=== PATIENT | male | born 1960 | race African-American/Black ===

== ENCOUNTER 2019-10-20 17:08 | Emergency (ER) | payer OTHER ==
[2019-10-20] MEDS ORDERED: ONDANSETRON 4 MG/2 ML VIAL ONE (19:49)
[2019-10-20] MEDS ORDERED: MORPHINE 2 MG/ML SYR ONE (19:49)
[2019-10-20] MEDS ORDERED: Levofloxacin500mg IV 500 MG/100 ML BAG IV ONE (19:50)
[2019-10-20] MEDS ORDERED: CLINDAMYCIN 900MG/D5W 900 MG/50 ML IVPB IV ONE (19:50)
[2019-10-20 20:03] LABS: Protime INR 1.84
[2019-10-20 20:13] LABS: Albumin 2.9 g/dL (3.4-5.0); Bilirubin Direct 0.3 mg/dL (0-0.2); Bilirubin Total 0.8 mg/dL (0.2-1.0); Protein, Total 8.5 g/dL (6.4-8.2); Troponin (Emerg Dept Use Only) 0.03 ng/mL (0.0-0.045)
[2019-10-20 20:14] LABS: Magnesium 2.1 mg/dL (1.8-2.4); Potassium 4.1 mmol/L (3.5-5.1)
[2019-10-20 20:17] LABS: Absolute Lymphocytes (CBC) 0.9 K/uL (0.7-4.9); Basophils % 0.5 % (0-1.3); Hematocrit 43.5 % (39.6-49.0); Lymphocytes % 6.1 % (15.3-44.8); MPV 12.5 fL (7.6-11.3); RBC Red Blood Cell Count 4.66 M/uL (4.33-5.43)
--- NOTE | 2019-10-20 20:29 | RAD REPORT ---
EXAM DESCRIPTION: Ritchie Single View10/20/2019 7:40 pm CLINICAL HISTORY: cough COMPARISON: 2017 FINDINGS: The lungs appear clear of acute infiltrate. The heart is mildly enlarged. Pacemaker leads in place IMPRESSION: No acute abnormalities displayed
--- NOTE | 2019-10-20 21:05 | RAD REPORT ---
EXAM DESCRIPTION: US - Scrotum Testicles - 10/20/2019 8:53 pm CLINICAL HISTORY: Testicular pain COMPARISON: None FINDINGS: Right testicle measures 2.7 x 2.7 x 1.1 centimeters. Echotexture is mildly inhomogeneous. Normal blood flow Left testicle measures 2 x 1.8 x 1.8 centimeters centimeters. Echotexture is homogeneous. Normal bloo d flow Neither epididymis seen A 5 x 2.2 x 3.2 centimeter hypoechoic structure is present within the left scrotum with blood flow fulton rrounding it. This probably represents an abscess. There is marked scrotal skin thickening IMPRESSION: 5 centimeter hypoechoic structure within the left scrotum probably an abscess
--- NOTE | 2019-10-20 22:22 | EDPHYS ---
Physician Documentation [facility] Name: Isael Salas Jr Age: 59 yrs Sex: Male : 1960 Arrival Date: 10/20/2019 Time: 17:29 Bed 19 Private MD: ED Physician Ford Loco HPI: 10/19 18:50 This 59 yrs old Black Male presents to ER via EMS with complaints of SCROTAL PAIN X 1 brandy WEEK. 18:50 The patient presents with scrotal pain, of both sides, with swelling, swelling, brandy tenderness. Onset: The symptoms/episode began/occurred 1 week(s) ago. Modifying factors: The symptoms are alleviated by nothing, the symptoms are aggravated by movement, pressure. Associated signs and symptoms: The patient has no apparent associated signs or symptoms. Severity of symptoms: At their worst the symptoms were moderate, in the emergency department the symptoms. The patient has not experienced similar symptoms in the past. Historical: - Allergies: 17:41 No Known Allergies; ss - PMHx: 17:41 CHF; Hypertension; LOW POTASSIUM; CVA; ss - PSHx: 17:41 DEFIBRILLATOR; ss - Immunization history:: Adult Immunizations up to date. - Social history:: Smoking status: Patient denies any tobacco usage or history of. - Family history:: not pertinent. ROS: 18:50 Constitutional: Negative for fever, chills, and weight loss, Eyes: Negative for injury, brandy pain, redness, and discharge, ENT: Negative for injury, pain, and discharge, Neck: Negative for injury, pain, and swelling, Cardiovascular: Negative for chest pain, palpitations, and edema, Respiratory: Negative for shortness of breath, cough, wheezing, and pleuritic chest pain, Abdomen/GI: Negative for abdominal pain, nausea, vomiting, diarrhea, and constipation, Back: Negative for injury and pain, MS/Extremity: Negative for injury and deformity, Skin: Negative for injury, rash, and discoloration, Neuro: Negative for headache, weakness, numbness, tingling, and seizure, Psych: Negative for depression, anxiety, suicide ideation, homicidal ideation, and hallucinations, Allergy/Immunology: Negative for hives, rash, and allergies, Endocrine: Negative for neck swelling, polydipsia, polyuria, polyphagia, and marked weight changes, Hematologic/Lymphatic: Negative for swollen nodes, abnormal bleeding, and unusual bruising. 18:50 : Positive for of the left testicle and right testicle. Exam: 18:50 Constitutional: This is a well developed, well nourished patient who is awake, alert, brandy and in no acute distress. Head/Face: Normocephalic, atraumatic. Eyes: Pupils equal round and reactive to light, extra-ocular motions intact. Lids and lashes normal. Conjunctiva and sclera are non-icteric and not injected. Cornea within normal limits. Periorbital areas with no swelling, redness, or edema. ENT: Nares patent. No nasal discharge, no septal abnormalities noted. Tympanic membranes are normal and external auditory canals are clear. Oropharynx with no redness, swelling, or masses, exudates, or evidence of obstruction, uvula midline. Mucous membranes moist. Neck: Trachea midline, no thyromegaly or masses palpated, and no cervical lymphadenopathy. Supple, full range of motion without nuchal rigidity, or vertebral point tenderness. No Meningismus. Chest/axilla: Normal chest wall appearance and motion. Nontender with no deformity. No lesions are appreciated. Cardiovascular: Regular rate and rhythm with a normal S1 and S2. No gallops, murmurs, or rubs. Normal PMI, no JVD. No pulse deficits. Respiratory: Lungs have equal breath sounds bilaterally, clear to auscultation and percussion. No rales, rhonchi or wheezes noted. No increased work of breathing, no retractions or nasal flaring. Abdomen/GI: Soft, non-tender, with normal bowel sounds. No distension or tympany. No guarding or rebound. No evidence of tenderness throughout. Back: No spinal tenderness. No costovertebral tenderness. Full range of motion. MS/ Extremity: Pulses equal, no cyanosis. Neurovascular intact. Full, normal range of motion. Neuro: Awake and alert, GCS 15, oriented to person, place, time, and situation. Cranial nerves II-XII grossly intact. Motor strength 5/5 in all extremities. Sensory grossly intact. Cerebellar exam normal. Normal gait. Psych: Awake, alert, with orientation to person, place and time. Behavior, mood, and affect are within normal limits. 18:50 : CVA tenderness, is absent, Male external genitalia: swelling, tenderness, of the left testicle and right testicle is noted. Vital Signs: 17:34 BP 146 / 77; Pulse 75; Resp 17; Temp 99.1(TE); Pulse Ox 97% on R/A; Weight 77.11 kg; ss Pain 4/10; 19:00 BP 138 / 80; Pulse 77; Resp 19; Pulse Ox 98% on R/A; Pain 3/10; ls4 21:02 BP 141 / 80; Pulse 74; Resp 19; Temp 98.9(O); Pulse Ox 98% on R/A; Pain 3/10; ls4 23:30 BP 128 / 70; Pulse 72; Resp 18; Pulse Ox 99% on R/A; jb4 10/20 00:30 BP 115 / 56; Pulse 72; Resp 16; Temp 98.6(TE); Pulse Ox 100% on R/A; Pain 0/10; jb4 MDM: 10/19 18:16 Patient medically screened. [facility] 18:54 Data reviewed: vital signs, nurses notes, lab test result(s), EKG, radiologic studies, brandy plain films, ultrasound. 19:21 ED course: pt stable, work up underway, elizabeth cross to dispo. [facility] 22:17 Physician consultation: Dr Cadet was called at 22:18, was contacted at 22:18, regarding snw regarding transfer, Dr. Cadet will kindly consult on this pt. Request CT of pelvis for further eval of abscess. 22:51 Physician consultation: Dr Fonseca was called at 22:51, was contacted at 22:51, snw regarding regarding transfer, to [facility]. 10/19 18:49 Order name: Basic Metabolic Panel; Complete Time: 20:19 [facility] 10/19 18:49 Order name: CBC with Diff; Complete Time: 20:42 [facility] 10/19 18:49 Order name: LFT's; Complete Time: 20:19 [facility] 10/19 18:49 Order name: Magnesium; Complete Time: 20:19 [facility] 10/19 18:49 Order name: NT PRO-BNP; Complete Time: 20:19 [facility] 10/19 18:49 Order name: PT-INR; Complete Time: 20:33 [facility] 10/19 18:49 Order name: Troponin (emerg Dept Use Only); Complete Time: 20:19 [facility] 10/19 18:49 Order name: XRAY Chest (1 view); Complete Time: 20:33 [facility] 10/19 18:49 Order name: Blood Culture Adult (2) [facility] 10/19 18:49 Order name: US Scrotum Testicles; Complete Time: 21:14 [facility] 10/19 22:13 Order name: CT Pelvis wo Cont snw 10/19 18:49 Order name: EKG; Complete Time: 18:51 [facility] 10/19 18:49 Order name: Cardiac monitoring; Complete Time: 19:57 [facility] 10/19 18:49 Order name: EKG - Nurse/Tech [facility] 10/19 18:49 Order name: IV Saline Lock; Complete Time: 19:57 [facility] 10/19 18:49 Order name: Labs collected and sent; Complete Time: 19:57 [facility] 10/19 18:49 Order name: O2 Per Protocol; Complete Time: 19:57 [facility] 10/19 18:49 Order name: O2 Sat Monitoring; Complete Time: 20:20 [facility] 10/19 18:49 Order name: Urine Dipstick-Ancillary (obtain specimen) [facility] Administered Medications: 19:56 Drug: morphine 2 mg Route: IVP; Site: right antecubital; ls4 20:20 Follow up: Response: No adverse reaction; Marked relief of symptoms ls4 19:56 Drug: Zofran (Ondansetron) 4 mg Route: IVP; Site: right antecubital; ls4 20:20 Follow up: Response: No adverse reaction; Marked relief of symptoms ls4 19:57 Drug: Clindamycin 900 mg Route: IVPB; Infused Over: 30 mins; Site: right antecubital; ls4 20:30 Drug: levofloxacin 500 mg Volume: 100 ml; Route: IVPB; Infused Over: 60 mins; Site: ls4 right antecubital; Disposition: 10/20 13:29 Co-signature as Attending Physician, Ford Loco MD I agree with the assessment and [facility] plan of care. Disposition: 10/20/19 22:19 Transfer ordered to [facility]. Diagnosis is Scrotal abscess. - Reason for transfer: Higher level of care. - Accepting physician is Dr. Fonseca. - Condition is Stable. - Problem is new. - Symptoms are unchanged. Signatures: Dispatcher [employer] Ford Fishman MD MD cha Therrien Elizabeth, CLOTHES MODEL-C CLOTHES MODEL-Csnw Ashley Ashford, RN RN ss Tristin iJménez, RN RN jb4 Sharyn Zepeda RN RN ls4 Corrections: (The following items were deleted from the chart) 10/19 22:51 22:19 10/20/2019 22:19 Transfer ordered to [facility]. snw Diagnosis is Scrotal abscess. Reason for transfer: Higher level of care. Accepting physician is . Condition is Stable. Problem is new. Symptoms are unchanged. snw 10/20 00:37 10/19 22:51 10/20/2019 22:19 Transfer ordered to [facility]. jb4 Diagnosis is Scrotal abscess. Reason for transfer: Higher level of care. Accepting physician is Dr. Fonseca. Condition is Stable. Problem is new. Symptoms are unchanged. snw
--- NOTE | 2019-10-20 22:22 | ER ---
Nurse's Notes [facility] Name: Isael Salas Jr Age: 59 yrs Sex: Male : 1960 Arrival Date: 10/20/2019 Time: 17:29 Bed 19 Private MD: Diagnosis: Scrotal abscess Presentation: 10/19 17:34 Chief complaint: Patient states: testicular swelling x 4 days. Coronavirus screen: Patient denies a cough. Patient denies shortness of breath or difficulty breathing. Patient denies measured and/or subjective temperature greater than 100.4F prior to today's visit. Patient denies travel on a cruise ship or to a country the [facility] currently lists as an affected area. Patient denies contact with known and/or suspected case of COVID-19. Ebola Screen: Patient denies exposure to infectious person. Patient denies travel to an Ebola-affected area in the 21 days before illness onset. Initial Sepsis Screen: Does the patient meet any 2 criteria? No. Patient's initial sepsis screen is negative. Does the patient have a suspected source of infection? No. Patient's initial sepsis screen is negative. Risk Assessment: Do you want to hurt yourself or someone else? Patient reports no desire to harm self or others. Onset of symptoms was October 16, 2019. 17:34 Method Of Arrival: EMS: [facility] 17:34 Acuity: MELANI 3 Triage Assessment: 17:49 General: Appears in no apparent distress. uncomfortable. General: Behavior is calm, ls4 cooperative. Pain: Complains of pain in pelvis Pain currently is 4 out of 10 on a pain scale. Cardiovascular: Denies chest pain. Respiratory: No deficits noted. Airway is patent Respiratory effort is even, unlabored, Respiratory pattern is regular. Respiratory: Denies cough, shortness of breath labored breathing. GI: No deficits noted. No signs and/or symptoms were reported involving the gastrointestinal system. : No deficits noted. No signs and/or symptoms were reported regarding the genitourinary system. Musculoskeletal: Circulation, motion, and sensation intact. Capillary refill < 3 seconds, Range of motion: intact in all extremities. Historical: - Allergies: 17:41 No Known Allergies; ss - PMHx: 17:41 CHF; Hypertension; LOW POTASSIUM; CVA; ss - PSHx: 17:41 DEFIBRILLATOR; ss - Immunization history:: Adult Immunizations up to date. - Social history:: Smoking status: Patient denies any tobacco usage or history of. - Family history:: not pertinent. Screenin:30 Abuse screen: Denies threats or abuse. Denies injuries from another. ls4 17:30 Nutritional screening: No deficits noted. Tuberculosis screening: No symptoms or risk ls4 factors identified. Fall Risk None identified. Assessment: 17:30 General: Appears in no apparent distress. uncomfortable, Behavior is calm, cooperative, ls4 quiet. 17:30 Neuro: Level of Consciousness is awake, alert, obeys commands, Oriented to person, ls4 place, time, situation, Speech is slurred, pt baseline . Cardiovascular: Denies chest pain. Respiratory: Denies cough, shortness of breath labored breathing. GI: No deficits noted. No signs and/or symptoms were reported involving the gastrointestinal system. : Reports pain scrotum, Pain is 4 out of 10 on a pain scale. pain itchiness and swelling scrotum. Derm: Reports itching, scrotum. 22:02 Reassessment: Patient appears in no apparent distress at this time. Patient and/or ls4 family updated on plan of care and expected duration. Pain level reassessed. Patient is alert, oriented x 3, equal unlabored respirations, skin warm/dry/pink. 23:30 Reassessment: Patient appears in no apparent distress at this time. Patient and/or jb4 family updated on plan of care and expected duration. Pain level reassessed. Patient is alert, oriented x 3, equal unlabored respirations, skin warm/dry/pink. Took over care of patient. 10/20 00:34 Reassessment: Patient appears in no apparent distress at this time. Patient and/or jb4 family updated on plan of care and expected duration. Pain level reassessed. Patient is alert, oriented x 3, equal unlabored respirations, skin warm/dry/pink. Pt remains alert and oriented to person, time, and situation. Appears to be at baseline from prior interactions through out the shift, Transferred out of ED via EMS. Vital Signs: 10/19 17:34 BP 146 / 77; Pulse 75; Resp 17; Temp 99.1(TE); Pulse Ox 97% on R/A; Weight 77.11 kg; ss Pain 4/10; 19:00 BP 138 / 80; Pulse 77; Resp 19; Pulse Ox 98% on R/A; Pain 3/10; ls4 21:02 BP 141 / 80; Pulse 74; Resp 19; Temp 98.9(O); Pulse Ox 98% on R/A; Pain 3/10; ls4 23:30 BP 128 / 70; Pulse 72; Resp 18; Pulse Ox 99% on R/A; jb4 10/20 00:30 BP 115 / 56; Pulse 72; Resp 16; Temp 98.6(TE); Pulse Ox 100% on R/A; Pain 0/10; jb4 ED Course: 10/19 17:29 Patient arrived in ED. tw2 17:30 Patient has correct armband on for positive identification. Bed in low position. Call ls4 light in reach. Side rails up X 1. phototypesetting equipment monitor on. Pulse ox on. NIBP on. Warm blanket given. Verbal reassurance given. 17:30 No provider procedures requiring assistance completed. Initial lab(s) drawn, by me, ls4 sent to lab. Inserted saline lock: 18 gauge in right antecubital area, using aseptic technique. Blood collected. Patient maintains SpO2 saturation greater than 95% on room air. 17:40 Triage completed. ss 17:41 Arm band placed on right wrist. ss 17:48 Sharyn Zepeda, RN is Primary Nurse. ls4 18:16 Ford Loco MD is Attending Physician. brandy 19:39 Elizabeth Soler FNP-C [facility]. snw 19:40 XRAY Chest (1 view) In Process Unspecified. EDMS 20:54 US Scrotum Testicles In Process Unspecified. EDMS 21:[address] [facility] spoke with Chelle. ar5 23:27 CT Pelvis wo Cont In Process Unspecified. EDMS 10/20 00:30 Patient transferred, IV remains in place. jb4 Administered Medications: 10/19 19:56 Drug: morphine 2 mg Route: IVP; Site: right antecubital; ls4 20:20 Follow up: Response: No adverse reaction; Marked relief of symptoms ls4 19:56 Drug: Zofran (Ondansetron) 4 mg Route: IVP; Site: right antecubital; ls4 20:20 Follow up: Response: No adverse reaction; Marked relief of symptoms ls4 19:57 Drug: Clindamycin 900 mg Route: IVPB; Infused Over: 30 mins; Site: right antecubital; ls4 20:30 Drug: levofloxacin 500 mg Volume: 100 ml; Route: IVPB; Infused Over: 60 mins; Site: ls4 right antecubital; Outcome: 22:19 ER care complete, transfer ordered by MD. han 10/20 00:30 Transferred by ground EMS to [facility], Transfer form completed. X-rays jb4 sent w/ patient. Condition: stable Discharge instructions given to patient, family, Instructed on the need for transfer, Demonstrated understanding of instructions. 00:37 Patient left the ED. jb4 Signatures: Dispatcher [employer] EDFord Jackson MD MD cha Therrien, Shelly, FIRE ALARM MECHANIC-C FIRE ALARM MECHANIC-Csnw Ashley Ashford RN RN ss Kelsie Prajapati RN RN tw2 Tristin Jiménez RN RN jb4 Sharyn Zepeda RN RN ls4 Libby Hart ar5
[2019-10-21 00:51] VITALS: BP 115/56; TEMP 98.6; O2SAT 100
--- NOTE | 2019-10-21 07:25 | EKG ---
Test Date: 2019-10-20 Test Time: 20:54:07 Special Events Driver: HILDA MEASUREMENT RESULTS: Intervals: Rate: 78 [place]: 178 QRSD: 146 QT: 444 QTc: 506 [place]: P: 37 [place]: 178 QRS: -46 T: 98 INTERPRETIVE STATEMENTS: Electronic ventricular pacemaker Compared to ECG 05/24/2016 12:29:55 No significant changes Electronically Signed On 10-21-19 07:24:06 CDT by Ulises Cespedes
--- NOTE | 2019-10-21 10:53 | RAD REPORT ---
EXAM DESCRIPTION: Pelvis Wo Cont CLINICAL HISTORY: 59 years Male, to eval for gas/please include slices to thigh COMPARISON: None. TECHNIQUE: Multiple helical axial tomographic images of the pelvis were obtained without intravenous contrast. Coronal and sagittal reformatted images were obtained. This exam was performed accordi ng to our departmental dose-optimization program, which includes automated exposure control, adjustme nt of the mA and/or kV according to patient size and/or use of iterative reconstruction technique. FINDINGS: Bladder: Unremarkable. Pelvic organs: There is hypoattenuation in the scrotal region suggestive of edema/fluid. Bowel: No evidence of bowel obstruction. No bowel wall thickening. Appendix appears unremarkable. Peritoneum: No free air. No significant free fluid. Lymph nodes: Unremarkable. Vasculature: Aortoiliac atherosclerosis is demonstrated. There is mild aneurysmal dilatation of the l eft common iliac artery measuring up to 1.9 cm in width. Soft tissues: No evidence of soft tissue air. Bones: Left acetabular subcortical cystic changes noted. Osteopenia is present. No acute fracture. IMPRESSION: 1. Findings suggestive of scrotal wall edema with possible hydrocele which may be infect ious or inflammatory. No evidence of soft tissue air. 2. Mild aneurysmal dilatation of the left common iliac artery. Electronically signed by: Ramon Clark MD 10/20/2019 11:51 PM CDT Due to temporary technical issues with the PACS/Fluency reporting system, reports are being signed by the in house radiologist without review as a courtesy to ensure prompt reporting. The interpreting r adiologist is fully responsible for the content of the report.
== END 2019-10-21 00:37 | disposition short-term general hospital (02) ==
LOC: ER 17:08
DX: N49.2 Inflammatory disorders of scrotum (principal); I10 Essential (primary) hypertension; Z95.810 Presence of automatic (implantable) cardiac defibrillator
CPT/HCPCS: 93005; 87040 ×2; 85025; 80048; 36415; 83735; 85610; 80076; 84484; 83880; 72192; 71045; 76870; 96375; 96374; 99285; J2270; J2405

== ENCOUNTER 2019-12-11 12:04 | Inpatient (IN) | payer OTHER ==
--- OUTSIDE RECORDS SUMMARY | 2019-12-11 12:07 | XMS REPORT | Clinical Summary ---
:1960 Author Organization [facility] Address [address] [place] [address] Care Team Providers Name Role Phone Unavailable Primary Care Provider Unavailable Allergies No Known Allergies Medications Medication Sig Dispensed Refills Start Date End Date Status sacubitriL-valsartan Take 1 tablet by 0 Active (ENTRESTO) 49-51 mg mouth 2 (two) Tab times daily. isosorbide dinitrate Take 20 mg by 0 Active (ISORDIL) 20 MG mouth 2 (two) tablet times daily. apixaban (ELIQUIS) 5 Take 5 mg by 0 Active mg Tab tablet mouth 2 (two) times daily. hydrALAZINE Take 50 mg by 0 Acti ve (APRESOLINE) 50 MG mouth 3 (three) tablet times daily. carvediloL (COREG) Take 6.25 mg by 0 Active 6.25 MG tablet mouth 3 (three) times daily. atorvastatin Take 20 mg by 0 Act joshua (LIPITOR) 20 MG mouth daily. tablet oxyCODONE-acetaminoph Take 1 tablet by 30 tablet 0 10/25/2019 11/04/2019 en (PERCOCET) 10-325 mouth every 4 mg per tablet (four) hours as needed for up to 10 days. Max Daily Amount: 6 tablets levoFLOXacin Take 1 tablet 10 tablet 0 10/25/2019 11/04/2019 E xpired (LEVAQUIN) 250 MG (250 mg total) tablet by mouth daily for 10 days. Active Problems Problem Noted Date Scrotal abscess 10/21/2019 Encounters Date Type Specialty Care Team Description 10/21/2019 - Hospital Encounter Cardiology Holly Lopez MD Scrotal abscess 10/25/2019 Roro Easley MD Kulkarni, Mrinalini Zade, MD Henderson, Edith Ifeoma, MD 10/21/2019 Travel after 12/10/2018 Social History Tobacco Use Types Packs/Day Years Used Date Former Smoker 1 Smokeless Tobacco: Former User Q uit: 09/17/2017 Tobacco Cessation: Counseling Given: No Alcohol Use Drinks/Week oz/Week Comments No Alcohol Habits Answer Date Recorded How often do you have a drink containing alcohol? Never 10/21/2019 How many drinks containing alcohol do you have on a typical Not asked day when you are drinking? How often do you have six or more drinks on one occasion? No t asked Sex Assigned at Date Recorded Not on file Job Start Date Occupation Industry Not on file Not on file Not on file Travel History Travel Start Travel End No recent travel history available. Last Filed Vital Signs Vital Sign Reading Time Taken Blood Pressure 128/73 10/25/2019 7:00 AM CDT Pulse 65 10/25/2019 7:00 AM CDT Temperature 36.4 C (97.6 F) 10/25/2019 7:00 AM CDT Respiratory Rate 19 10/25/2019 7:00 AM CDT Oxygen Saturation 96% 10/25/2019 7:00 AM CDT Inhaled Oxygen Concentration - - Weight 81.9 kg (180 lb 9.6 oz) 10/21/2019 1:51 AM CDT Height 167.6 cm (5' 6") 10/21/2019 1:51 AM CDT Body Mass Index 29.15 10/21/2019 1:51 AM CDT Plan of Treatment Not on file Procedures Procedure Name Priority Date/Time Associated Comments Diagnosis RHYTHM STRIP - SCAN 10/27/2019 9:02 AM CDT CBC W/PLT COUNT & Routine 10/25/2019 4:07 Result s for this AUTO DIFFERENTIAL AM CDT procedure are in the results section. CBC W/PLT COUNT & Routine 10/25/2019 4:07 Result s for this AUTO DIFFERENTIAL AM CDT procedure are in the results section. BASIC METABOLIC PANEL Routine 10/25/2019 4:07 Re sults for this (7) AM CDT procedure are i n the results section. WOUND CULTURE + GRAM Routine 10/24/2019 11:25 Res ults for this STAIN AM CDT procedure are i n the results section. CBC W/PLT COUNT & STAT 10/24/2019 4:44 Result s for this AUTO DIFFERENTIAL AM CDT procedure are in the results section. CBC W/PLT COUNT & STAT 10/24/2019 4:44 Result s for this AUTO DIFFERENTIAL AM CDT procedure are in the results section. CT ABDOMEN/PELVIS Routine 10/23/2019 3:04 Result s for this WITHOUT IV CONTRAST PM CDT procedur e are in the results section. CBC W/PLT COUNT & STAT 10/23/2019 10:19 Result s for this AUTO DIFFERENTIAL AM CDT procedure are in the results section. CBC W/PLT COUNT & STAT 10/23/2019 10:19 Result s for this AUTO DIFFERENTIAL AM CDT procedure are in the results section. BASIC METABOLIC PANEL Routine 10/23/2019 5:31 Re sults for this (7) AM CDT procedure are i n the results section. URINALYSIS W/ REFLEX STAT 10/22/2019 8:13 Res ults for this URINE CULTURE PM CDT procedure are in the results section. URINE CULTURE STAT 10/22/2019 8:13 Results fo r this PM CDT procedure are i n the results section. BASIC METABOLIC PANEL Routine 10/22/2019 4:05 Re sults for this (7) AM CDT procedure are i n the results section. SARS-COV2/RT-PCR STAT 10/21/2019 5:17 Results for this ([facility]) AM CDT procedure are in the results section. BLOOD CULTURE Routine 10/21/2019 5:06 Results fo r this AM CDT procedure are i n the results section. CBC W/PLT COUNT & Routine 10/21/2019 4:48 Result s for this AUTO DIFFERENTIAL AM CDT procedure are in the results section. PROTHROMBIN TIME/INR STAT 10/21/2019 4:48 Res ults for this AM CDT procedure are i n the results section. PT/APTT STAT 10/21/2019 4:48 Results for this AM CDT procedure are i n the results section. HEPATIC FUNCTION Routine 10/21/2019 4:48 Results for this PANEL AM CDT procedure are i n the results section. CBC W/PLT COUNT & Routine 10/21/2019 4:48 Result s for this AUTO DIFFERENTIAL AM CDT procedure are in the results section. BASIC METABOLIC PANEL Routine 10/21/2019 4:48 Re sults for this (7) AM CDT procedure are i n the results section. BLOOD CULTURE Routine 10/21/2019 4:48 Results fo r this AM CDT procedure are i n the results section. after 12/10/2018 Results RHYTHM STRIP - SCAN (10/27/2019 9:02 AM CDT) Narrative Performed At This result has an attachment that is no t available. CBC with platelet count + automated diff (10/25/2019 4:07 AM CDT)Only the most recent of4 resultswithin the time period is included. WBC 6.9 3.5 - 10.5 K/L [facility] RBC 4.30 (L) 4.63 - 6.08 M/L [facility] Hemoglobin 12.4 (L) 13.7 - 17.5 GM/DL [facility] Hematocrit 40.5 40.1 - 51.0 % [facility] MCV 94.2 (H) 79.0 - 92.2 fL [facility] MCH 28.8 25.7 - 32.2 pg [facility] MCHC 30.6 (L) 32.3 - 36.5 GM/DL [facility] RDW 13.3 11.6 - 14.4 % [facility] Platelets 255 150 - 450 K/CU MM [facility] MPV 13.8 (H) 9.4 - 12.4 fL [facility] nRBC 0 0 - 0 /100 WBC [facility] % Neutros 68 % [facility] % Lymphs 16 % [facility] % Monos 10 % [facility] % Eos 5 % [facility] % Baso 0 % [facility] # Neutros 4.66 1.78 - 5.38 K/L [facility] # Lymphs 1.07 (L) 1.32 - 3.57 K/L [facility] # Monos 0.70 0.30 - 0.82 K/L [facility] # Eos 0.35 0.04 - 0.54 K/L [facility] # Baso 0.03 0.01 - 0.08 K/L [facility] Immature Granulocytes-Relative 1 0 - 1 % [facility] Specimen Blood Performing Organization Address City/[facility]/Zipcode Phone Number [facility] [address] [place] [address] [place] Basic Metabolic Panel (10/25/2019 4:07 AM CDT)Only the most recent of4 results within the time period is included. Sodium 142 136 - 145 meq/L [facility] Potassium 3.9 3.5 - 5.1 meq/L [facility] Chloride 110 (H) 98 - 107 meq/L [facility] CO2 24 22 - 29 meq/L [facility] BUN 21 7 - 21 mg/dL [facility] Creatinine 2.02 (H) 0.57 - 1.25 mg/dL [facility] Glucose 93 70 - 105 mg/dL [facility] Calcium 8.4 8.4 - 10.2 mg/dL [facility] EGFR 41Comment: ESTIMATED GFR IS mL/min/1.73 sq m [facility] NOT ACCURATE CREATININE [facility] CLEARANCE IN PREDICTING GLOMERULAR FILTRATION RATE. ESTIMATED GFR IS NOT APPLICABLE FOR DIALYSIS PATIENTS. Specimen Blood Narrative Performed At Director Engineering ID - KEDAR Velez [facility] Performing Organization Address City/[facility]/Zipcode Phone Number [facility] [address] [place] [address] [place] Wound culture + gram stain (10/24/2019 11:25 AM CDT) Result Beta-hemolytic streptococcus [facility] BCM group B, by serological [facility] grouping (A) Result Citrobacter koseri (A) [facility] Gram Stain Result 1+ WBCs [facility] Gram Stain Result No organisms seen [facility] Specimen Abscess Organism Antibiotic Method Susceptibility Citrobacter koseri Amikacin <=2: Suscepti ble Citrobacter koseri Aztreonam <=1: Suscepti ble Citrobacter koseri Cefepime <=1: Suscepti ble Citrobacter koseri Cefoxitin <=4: Suscepti ble Citrobacter koseri Ceftazidime <=1: Suscepti ble Citrobacter koseri Ceftriaxone <=1: Suscepti ble Citrobacter koseri Ertapenem <=0.5: Suscep tible Citrobacter koseri Gentamicin <=1: Suscepti ble Citrobacter koseri Levofloxacin <=0.12: Susce ptible Citrobacter koseri Meropenem <=0.25: Susce ptible Citrobacter koseri Piperacillin + Tazobactam <=4 : Susceptible Citrobacter koseri Tetracycline <=1: Suscepti ble Citrobacter koseri Tobramycin <=1: Suscepti ble Citrobacter koseri Trimethoprim + Sulfamethoxazole <=20: Susceptible Performing Organization Address City/State/Zipcode Phone Number [facility] [address] [place] [address] abdomen/pelvis without iv contrast (10/23/2019 3:04 PM CDT) Specimen Narrative Performed At FINAL REPORT Intrinsity [facility] CT of the abdomen and pelvis, without co ntrast Clinical History:Scrotal mass or lum p (Ped 0-18y) Technique: CT of the abdomen and pelvis is performed without intravenous contrast administration. Thi s exam was performed according to our departmental dose optim ization program which includes automated exposure control, adj ustment of the mA and/or kV according to patient's size and/or use o f iterative reconstructive technique. Comparison Film:CT and ultrasound da yenni October 20, 2019, performed at an outside institution Discussion: Visualized lower thorax is unremarkable. There is a left-sided ICD and pacemaker device. Heart is enlarged. Contrast in the distal esophagus may reflect reflux. No liver lesion is identified on this no ncontrast exam. There is no biliary ductal dilatation, gallbladder i s unremarkable. The spleen, pancreas, and adrenal glands are unremarkable. There is an exophytic 2.4 cm lesion celi ing from the posterior right kidney, probably a cyst, but not definit ively characterized on this noncontrast exam. No hydronephrosis or r adiopaque stone. No evidence of bowel obstruction, or abn ormal bowel wall thickening. Normal appendix. In the pelvis, bladder appears normal. P rostate gland contains dystrophic calcification. Scrotal wall a ppears thickened/edematous, and there is a 3.6 x 2.6 cm hypodensity in the scrotal region that may represent a necrotic mass versus abs cess, this is partially imaged. No ascites, free air, or lymphadenopathy . There is moderate vascular calcification. Bony structures demonstra te degenerative changes. Impression: Scrotal wall edema. A 3.6 x 2.6 cm incom pletely imaged hypodensity in scrotal region could represent a necroti c mass, versus abscess, correlate clinically and correlate with report of prior imaging. Signed: Fitz Champagne MD Report Verified Date/Time:10/23/2019 15:38:07 Reading Location: [address] Reading Room Procedure Note Interface, External Ris In - 10/23/2019 3:40 PM CDT FINAL REPORT CT of the abdomen and pelvis, without co ntrast Clinical History: Scrotal mass or lump (Ped 0-18y) Technique: CT of the abdomen and pelvis is performed without intravenous contrast administration. Thi s exam was performed according to our departmental dose optim ization program which includes automated exposure control, adj ustment of the mA and/or kV according to patient's size and/or use o f iterative reconstructive technique. Comparison Film: CT and ultrasound date d October 20, 2019, performed at an outside institution Discussion: Visualized lower thorax is unremarkable. There is a left-sided ICD and pacemaker device. Heart is enlarged. Contrast in the distal esophagus may reflect reflux. No liver lesion is identified on this no ncontrast exam. There is no biliary ductal dilatation, gallbladder i s unremarkable. The spleen, pancreas, and adrenal glands are unremarkable. There is an exophytic 2.4 cm lesion celi ing from the posterior right kidney, probably a cyst, but not definit ively characterized on this noncontrast exam. No hydronephrosis or r adiopaque stone. No evidence of bowel obstruction, or abn ormal bowel wall thickening. Normal appendix. In the pelvis, bladder appears normal. P rostate gland contains dystrophic calcification. Scrotal wall a ppears thickened/edematous, and there is a 3.6 x 2.6 cm hypodensity in the scrotal region that may represent a necrotic mass versus abs cess, this is partially imaged. No ascites, free air, or lymphadenopathy . There is moderate vascular calcification. Bony structures demonstra te degenerative changes. Impression: Scrotal wall edema. A 3.6 x 2.6 cm incom pletely imaged hypodensity in scrotal region could represent a necroti c mass, versus abscess, correlate clinically and correlate with report of prior imaging. Signed: Fitz Champagne MD Report Verified Date/Time: 10/23/2019 1 5:38:07 Reading Location: [facility] [id number] [facility] Reading Room Performing Organization Address City/State/Zipcode Phone Number [facility] Urinalysis w/Microscopic + Reflex to Culture (10/22/2019 8:13 PM CDT) Color, UA Yellow [facility] Clarity, UA Hazy [facility] Specific [place], UA 1.019 1.001 - 1.035 [facility] pH, UA 5.5 5.0 - 8.0 [facility] Protein, UA 50 mg/dL (A) Negative [facility] Glucose, UA Negative Negative [facility] Ketones, UA Trace (A) Negative [facility] Bilirubin, UA Negative Negative [facility] Blood, UA Small (A) Negative [facility] Nitrite, UA Negative Negative [facility] Leukocytes, UA Large (A) Negative [facility] Urobilinogen, UA 0.2 0.2 - 1.0 mg/dL [facility] RBC, UA 16 /HPF [facility] WBC, UA 319 /HPF [facility] Bacteria, UA Occasional [facility] Squam Epithel, UA 2 /HPF [facility] Specimen Source [facility] Specimen Urine Narrative Performed At Director Engineering ID - [[id number]] [facility] Director Engineering ID - kia Performing Organization Address City/State/Zipcode Phone Number [address] [address] [place] Urine culture (10/22/2019 8:13 PM CDT) Result No growth [facility] Specimen Urine Performing Organization Address City/State/Zipcode Phone Number [address] [address] [place] SARS-CoV2/RT-PCR (Asymptomatic ONLY) (10/21/2019 5:17 AM CDT) SARS-COV2/RT-PCR Not Detected Not Detected, Negative [facility] SARS-COV-2 PERFORMING LAB [facility] Specimen Other Narrative Performed At Negative results do not preclude SARS-CoV-2 [facility] infection and should not be used as the sole basis for patient management decisions. Negative results must be combined with clinical observations, patient history, and epidemiological information. A false negative result may occur if a specimen is improperly collected, transported or handled. The limit of detection for this assay is 250 copies/mL. This SARS CoV-2 test is a rapid, real-time RT-PCR test intended for the qualitative detection of nucleic acid from SARS-CoV-2 in a nasopharyngeal swab specimen collected from individuals suspected of COVID-19 by their healthcare provider. This test has not been Food and Drug Administration (FDA) cleared or approved and has been authorized by FDA under an Emergency Use Authorization (EUA). This EUA will be effective until the declaration that circumstances exist justifying the authorization of the emergency use of in vitro diagnostic tests for detection and/or diagnosis of COVID-19 is terminated under Section 564(b)(2) of the Act or the EUA is revoked under Section 564(g) of the Act. Fact Sheet for Healthcare Providers: https://www.[employer]/Documents/Xpert%20Xpre ss%20SARS%20CoV-2/Fact%20Sheets/3023802%20SAR S-COV-2%20HEALTHCARE%20PROVIDERS%20FACT%20SHEE T.pdf Fact Sheet for Healthcare Patients: https://www.[employer]/Documents/Xpert%20Xpre ss%20SARS%20CoV-2/Fact%20Sheets/3023801%20SAR S-COV-2%20PATIENT%20FACT%20SHEET.pdf Performing Laboratory: [address] [place] [address] Performing Organization Address [facility]/Zipcode Phone Number [address] [address] [place] Blood Culture - Routine (Right Venipuncture) (10/21/2019 5:06 AM CDT)Only the most recent of2 resultswithin the time period is included. Result No growth in 5 days [facility] Specimen Blood Performing Organization Address City/[facility]/Zipcode Phone Number [address] [address] CENTER PT/aPTT (10/21/2019 4:48 AM CDT) Protime 19.9 (H) 11.9 - 14.2 seconds [facility] INR 1.7 <=5.9 [facility] PTT 35.5 22.5 - 36.0 seconds [facility] Specimen Blood Narrative Performed At Effective 09/30/2018: PT Reference Range [facility] Change New: 11.9-14.2Previous: 11.7-14.7 RECOMMENDED COUMADIN/WARFARIN INR THERAPY RANGES STANDARD DOSE: 2.0-3.0Includes: PROPHYLAXIS for venous thrombosis, systemic embolization; TREATMENT for venous thrombosis and/or pulmonary embolus. HIGH RISK: Target INR is 2.5-3.5 for patients wiht mechanical heart valves. Performing Organization Address [facility] Cent[facility]ode Phone Number [address] [address] [place] Prothrombin time/INR (10/21/2019 4:48 AM CDT) Protime 19.9 (H) 11.9 - 14.2 seconds [facility] INR 1.7 <=5.9 [facility] Specimen Blood Narrative Performed At Effective 09/30/2018: PT Reference Range [facility] Change New: 11.9-14.2Previous: 11.7-14.7 RECOMMENDED COUMADIN/WARFARIN INR THERAPY RANGES STANDARD DOSE: 2.0-3.0Includes: PROPHYLAXIS for venous thrombosis, systemic embolization; TREATMENT for venous thrombosis and/or pulmonary embolus. HIGH RISK: Target INR is 2.5-3.5 for patients wiht mechanical heart valves. Performing Organization Address [facility] Centercode Phone Number [address] [address] [place] Hepatic function panel (10/21/2019 4:48 AM CDT) Protein, Total 8.1 6.0 - 8.3 gm/dL [facility] Albumin 3.6 3.5 - 5.0 g/dL [facility] Total Bilirubin 0.9 0.2 - 1.2 mg/dL [facility] Bilirubin, Direct 0.5 0.1 - 0.5 mg/dL [facility] Alkaline Phosphatase 122 40 - 150 U/L [facility] AST 19 5 - 34 U/L [facility] ALT 15 6 - 55 U/L [facility] ALTH [facility] Specimen Blood Narrative Performed At Director Engineering ID - EDOUARD Dejesus [facility] Performing Organization Address City/State/Zipcode Phone Number [facility] [address] [place] [address] CENTER after 12/10/2018 Insurance Payer Benefit Plan / Subscriber ID Type Phone Address Group [employer] - MEDICARE [employer] MEDICARE xxxxxxxxx Maps Contracted MGD CARE ADV CDC REVIEW CDC REVIEW xxxxxxxx [address] [place] [address] Advance Directives For more information, please contact:[facility] [place] [address] [phone] Code Status Date Activated Date Inactivated Comments Full Code 10/21/2019 1:59 AM 10/25/2019 12:21 PM This code status was determined by: Patient
--- OUTSIDE RECORDS SUMMARY | 2019-12-11 12:09 | XMS REPORT | Continuity of Care Document ---
:1960 Author Organization [facility] t Address [address] [place] [address] Care Team Providers Name Role Phone JESSICA Attending Clinician Unavailable Jessica RICK Attending Clinician Tracee RICK, Susannah Attending Clinician Bonny RICK, Ignacio Attending Clinician Armand RICK, Carolina Attending Clinician CAROLINA ACUNA Admitting Clinician Unavailable Payers Payer Name Policy Type Policy Number Effective Date Expiration Source Date HUMANA - MEDICARE MGD xxxxxxxxx [facility] [place]ARE[place] MEDICARE [facility] - ADVxxxxxxxxxMaps [facility] Center CDC REVIEWCDC xxxxxxxx [facility] St REVIEWxxxxxxxxPO [facility] [id number] Center Problems Condition Condition Condition Status Onset Resolution Last Treating Co mments Source Name Details Category Date Date Treatment Clinician Date Scrotal Scrotal Disease Active [facility] St abscess [facility] 00 [place] Allergies, Adverse Reactions, Alerts This patient has no known allergies or adverse reactions. Social History Social Habit Start Date Stop Date Quantity Comments Source History SDOH Alcohol [facility] - Std Drinks [facility] History SDOH Alcohol [facility] - Binge [facility] Sex Assigned At [facility] Cigarettes smoked 2019-10-21 2019-10-21 [place] - current (pack per 00:00:00 00:00:00 [facility] Center day) - Reported History SDOH Alcohol 2019-10-21 2019-10-[address] [facility] [address] [facility] - Frequency 00:00:00 00:00:00 Medical Center Smoking Status Start Date Stop Date Source Former smoker 2019-10-21 00:00:00 2019-10-21 00:00:[address] [facility] Medications Ordered Filled Start Stop Current Ordering Indication Dosage Frequency Signature Comments Components Source Medication Medication Date Date Medication? Clinician (SIG) Name Name oxyCODONE-a 2020-0 2020- No 1{tbl} Take [address] cetaminophe -23 11- tablet by Suly kes - n 00:00: 23:59 mouth Medical (PERCOCET) 00 :00 every 4 Center 10-325 mg (four) per tablet hours as needed for up to 10 days. Max Daily Amount: 6 tablets levoFLOXaci 2019-0 2019- No 250mg QD Take [address] n 10-24 tablet [facility] - (LEVAQUIN) 00:00: 23:59 (250 mg Med ical 250 MG 00 :00 total) by Center tablet mouth daily for 10 days. hydrALAZINE 2020-0 Yes 50mg Q.[id number] Take [address] (APRESOLINE 6-18 [id number] by mouth 3 [facility] - ) 50 MG 10:02: 3D (three) Medical tablet 50 times Center daily. carvediloL 2020-0 Yes 6.25mg Q.[id number] Take 6.[address] (COREG) 6-18 [id number] mg by [facility] - 6.25 MG 10:02: 3D mouth 3 Medical tablet 50 (three) Center times daily. atorvastati 2020-0 Yes 20mg QD Take [address] n (LIPITOR) 6-18 by mouth Luke s - 20 MG 10:02: daily. Medical tablet 50 Center sacubitriL- 2020-0 Yes 1{tbl} Q.5D Take [address] valsartan 6-18 tablet by [facility] - (ENTRESTO) 10:02: mouth 2 Medi [place] 49-51 mg 49 (two) Center Tab times daily. isosorbide 2020-0 Yes 20mg Q.5D Take [address] dinitrate 6-18 by mouth 2 Luke s - (ISORDIL) 10:02: (two) Medical 20 MG 49 times Center tablet daily. apixaban 2020-0 Yes 5mg Q.5D Take [address] (ELIQUIS) 5 6-18 by mouth 2 Suly kes - mg Tab 10:02: (two) Medical tablet 49 times Center daily. Vital Signs Vital Name Observation Time Observation Value Comments Source Systolic blood 2019-10-25 07:00:00 128 mm[Hg] [facility] Diastolic blood 2019-10-25 07:00:00 73 mm[Hg] [facility] Heart rate 2019-10-25 07:00:00 65 /min [facility] Body temperature 2019-10-25 07:00:00 36.44 Brynn [facility] Respiratory rate 2019-10-25 07:00:00 19 /min [facility] Oxygen saturation in 2019-10-25 07:00:00 96 /min [facility] Arterial blood by Medical Ce nter Pulse oximetry Body height 2019-10-21 01:51:00 167.6 cm [facility] Body weight Measured 2019-10-21 01:51:00 81.92 kg [facility] BMI 2019-10-21 01:51:00 29.15 kg/m2 [facility] Procedures Procedure Date / Time Performed Performing Clinician [facility] e RHYTHM STRIP - SCAN 2019-10-27 09:02:37 [facility] BASIC METABOLIC PANEL 2019-10-25 04:07:[address] [facility] (7) [facility] CBC W/PLT COUNT & AUTO 2019-10-25 04:07:00 Roro Easley [facility] WOUND CULTURE + GRAM 2019-10-24 11:25:00 Tristin Sun [facility] CBC W/PLT COUNT & AUTO 2019-10-24 04:44:00 Tristin Sun [facility] CT ABDOMEN/PELVIS 2019-10-23 15:04:[address] [facility] WITHOUT IV CONTRAST Medical Cent er CBC W/PLT COUNT & AUTO 2019-10-23 10:19:00 Tristin Sun [facility] BASIC METABOLIC PANEL 2019-10-23 05:31:00 Kylee Acuna [facility] - (7) [facility] URINE CULTURE 2019-10-22 20:13:00 [facility] URINALYSIS W/ REFLEX 2019-10-22 20:13:00 [facility] BASIC METABOLIC PANEL 2019-10-22 04:05:00 Kylee Acuna [facility] - (7) [facility] SARS-COV2/RT-PCR ([facility] & 2019-10-21 05:17:00 [facility] - REF LABS) [facility] BLOOD CULTURE 2019-10-21 05:06:[address] [facility] BLOOD CULTURE 2019-10-21 04:48:[address] [facility] BASIC METABOLIC PANEL 2019-10-21 04:48:[facility] HEPATIC FUNCTION PANEL 2019-10-21 04:48:00 Armand [facility] PT/APTT 2019-10-21 04:48:00 [facility] PROTHROMBIN TIME/INR 2019-10-21 04:48:00 [facility] CBC W/PLT COUNT & AUTO 2019-10-21 04:48:00 Armand [facility] DIFFERENTIAL [facility] Results Test Description Test Time Test Comments Results Result Comments Source WOUND CULTURE + GRAM STAIN 2019-10-27 09:24:00 Test Item Value Reference Range Interpretation Comme nts CULTURE ([facility]) (test code = A Beta-hemolytic streptococcus 1095) group B, by ser ological grouping CULTURE ([facility]) (test code = CITROBACTER KOSERI A Citrobacter koseri 1095) Amikacin (test code = 1) S Aztreonam (test code = 32) S Cefepime (test code = 51) S Cefoxitin (test code = 68) S Ceftazidime (test code = 27) S Ceftriaxone (test code = 52) S Ertapenem (test code = 38) S Gentamicin (test code = 18) S Levofloxacin (test code = 22) S Meropenem (test code = 34) S Nitrofurantoin (test code = 23) S Piperacillin + Tazobactam (test S code = 29) Tetracycline (test code = 2) S Tobramycin (test code = 25) S Trimethoprim + Sulfamethoxazole S (test code = 47) GRAM STAIN RESULT (BEAKER) (test 1+ WBCs code = 1123) GRAM STAIN RESULT (BEAKER) (test No organisms seen code = 425108) Blood Culture - Routine (Right Venipuncture)2019-10-26 06:00:00 Test Item Value Reference Range Interpretation Comments Result (test code = No growth in 5 days 6463-4) [facility] [id number] 06:00:00 Test Item Value Reference Range Interpretation Comments CULTURE (BEAKER) (test No growth in 5 days code = 1095) BLOOD [id number] 06:00:00 Test Item Value Reference Range Interpretation Comments CULTURE (BEAKER) (test No growth in 5 days code = 1095) Basic Metabolic [id number] 06:48:00 Test Item Value Reference Range Interpretation Comments Sodium (test code = 142 meq/L 435-851 3774-2) Potassium (test code = 3.9 meq/L 3.5-5.1 2823-3) Chloride (test code = 110 meq/L 98-107 H 2075-0) CO2 (test code = 24 meq/L 22-29 2028-9) BUN (test code = 21 mg/dL 7-21 3094-0) Creatinine (test code 2.02 mg/dL 0.57-1.25 H = 2160-0) Glucose (test code = 93 mg/dL 70-105 2345-7) Calcium (test code = 8.4 mg/dL 8.4-10.2 16356-7) EGFR (test code = 41 mL/min/1.73 [place] [address]-3) NOT ACCURATE CREATININE CLEARANCE IN PREDICTING GLOMERULAR FILTRATION RATE . ESTIMATED GFR I S NOT APPLICABLE FOR DIALYSIS PATIENTS. MARIELA (test code = MARIELA) Yard Assistant ID - PIAYA L Lab Interpretation Abnormal (test code = 74235-3) [facility] [id number] 06:48:00 Test Item Value Reference Range Interpretation Comments SODIUM (BEAKER) 142 meq/L 136-145 (test code = 381) POTASSIUM (BEAKER) 3.9 meq/L 3.5-5.1 (test code = 379) CHLORIDE (BEAKER) 110 meq/L 98-107 H (test code = 382) CO2 (BEAKER) (test 24 meq/L 22-29 code = 355) BLOOD UREA NITROGEN 21 mg/dL 7-21 (BEAKER) (test code = 354) CREATININE (BEAKER) 2.02 mg/dL 0.57-1.25 H (test code = 358) GLUCOSE RANDOM 93 mg/dL 70-105 (BEAKER) (test code = 652) CALCIUM (BEAKER) 8.4 mg/dL 8.4-10.2 (test code = 697) EGFR (BEAKER) (test 41 mL/min/1.73 ESTIMA EUGENE GFR IS code = 1092) sq m NOT ACCURATE CREATININE CLEARANCE IN PREDICTING GLOMERULAR FILTRATION RATE . ESTIMATED GFR I S NOT APPLICABLE FOR DIALYSIS PATIEN TS. Yard Assistant ID - PIAYA LCBC with platelet count + automated [id number] 06:10:00 Test Item Value Reference Range Interpretation Comments WBC (test code = 6690-2) 6.9 3.5- 10.5 K/L RBC (test code = 789-8) 4.30 4.63- 6.08 M/L L MCHC (test code = 786-4) 30.6 32.3- 36.5 GM/DL L Hematocrit (test code = 4544-3) 40.5 % 40.1-51 MCV (test code = 787-2) 94.2 fL 79-92.2 H MCH (test code = 785-6) 28.8 pg 25.7-32.2 RDW (test code = 788-0) 13.3 % 11.6-14.4 Platelets (test code = 777-3) 255 150- 450 K/CU MM MPV (test code = 53267-0) 13.8 fL 9.4-12.4 H nRBC (test code = 413) 0 0- 0 /100 WBC % Neutros (test code = 429) 68 % % Lymphs (test code = 430) 16 % % Monos (test code = 431) 10 % % Eos (test code = 432) 5 % % Baso (test code = 437) 0 % # Neutros (test code = 670) 4.66 1.78- 5.38 K/L # Lymphs (test code = 414) 1.07 1.32- 3.57 K/L L # Monos (test code = 415) 0.70 0.30- 0.82 K/L # Eos (test code = 416) 0.35 0.04- 0.54 K/L # Baso (test code = 417) 0.03 0.01- 0.08 K/L Immature Granulocytes-Relative 1 % 0-1 (test code = 2801) Lab Interpretation (test code = Abnormal 54643-3) [facility] W/PLT COUNT & AUTO [id number] 06:10:00 Test Item Value Reference Range Interpretation Comments WHITE BLOOD CELL COUNT (BEAKER) 6.9 K/ L 3.5-10.5 (test code = 775) RED BLOOD CELL COUNT (BEAKER) 4.30 M/ L 4.63-6.08 L (test code = 761) HEMOGLOBIN (BEAKER) (test code = 12.4 GM/DL 13.7-17.5 L 410) HEMATOCRIT (BEAKER) (test code = 40.5 % 40.1-51.0 411) MEAN CORPUSCULAR VOLUME (BEAKER) 94.2 fL 79.0-92.2 H (test code = 753) MEAN CORPUSCULAR HEMOGLOBIN 28.8 pg 25.7-32.2 (BEAKER) (test code = 751) MEAN CORPUSCULAR HEMOGLOBIN CONC 30.6 GM/DL 32.3-36.5 L (BEAKER) (test code = 752) RED CELL DISTRIBUTION WIDTH 13.3 % 11.6-14.4 (BEAKER) (test code = 412) PLATELET COUNT (BEAKER) (test 255 K/CU MM 150-450 code = 756) MEAN PLATELET VOLUME (BEAKER) 13.8 fL 9.4-12.4 H (test code = 754) NUCLEATED RED BLOOD CELLS 0 /100 WBC 0-0 (BEAKER) (test code = 413) NEUTROPHILS RELATIVE PERCENT 68 % (BEAKER) (test code = 429) LYMPHOCYTES RELATIVE PERCENT 16 % (BEAKER) (test code = 430) MONOCYTES RELATIVE PERCENT 10 % (BEAKER) (test code = 431) EOSINOPHILS RELATIVE PERCENT 5 % (BEAKER) (test code = 432) BASOPHILS RELATIVE PERCENT 0 % (BEAKER) (test code = 437) NEUTROPHILS ABSOLUTE COUNT 4.66 K/ L 1.78-5.38 (BEAKER) (test code = 670) LYMPHOCYTES ABSOLUTE COUNT 1.07 K/ L 1.32-3.57 L (BEAKER) (test code = 414) MONOCYTES ABSOLUTE COUNT (BEAKER) 0.70 K/ L 0.30-0.82 (test code = 415) EOSINOPHILS ABSOLUTE COUNT 0.35 K/ L 0.04-0.54 (BEAKER) (test code = 416) BASOPHILS ABSOLUTE COUNT (BEAKER) 0.03 K/ L 0.01-0.08 (test code = 417) IMMATURE GRANULOCYTES-RELATIVE 1 % 0-1 PERCENT (BEAKER) (test code = 2801) Urine [id number] 15:13:00 Test Item Value Reference Range Interpretation Comments Result (test code = 6463-4) No growth [facility] W/PLT COUNT & AUTO [id number] 05:22:00 Test Item Value Reference Range Interpretation Comments WHITE BLOOD CELL COUNT (BEAKER) 11.1 K/ L 3.5-10.5 H (test code = 775) RED BLOOD CELL COUNT (BEAKER) 4.23 M/ L 4.63-6.08 L (test code = 761) HEMOGLOBIN (BEAKER) (test code = 12.1 GM/DL 13.7-17.5 L 410) HEMATOCRIT (BEAKER) (test code = 40.0 % 40.1-51.0 L 411) MEAN CORPUSCULAR VOLUME (BEAKER) 94.6 fL 79.0-92.2 H (test code = 753) MEAN CORPUSCULAR HEMOGLOBIN 28.6 pg 25.7-32.2 (BEAKER) (test code = 751) MEAN CORPUSCULAR HEMOGLOBIN CONC 30.3 GM/DL 32.3-36.5 L (BEAKER) (test code = 752) RED CELL DISTRIBUTION WIDTH 13.2 % 11.6-14.4 (BEAKER) (test code = 412) PLATELET COUNT (BEAKER) (test 260 K/CU MM 150-450 code = 756) MEAN PLATELET VOLUME (BEAKER) 13.3 fL 9.4-12.4 H (test code = 754) NUCLEATED RED BLOOD CELLS 0 /100 WBC 0-0 (BEAKER) (test code = 413) NEUTROPHILS RELATIVE PERCENT 76 % (BEAKER) (test code = 429) LYMPHOCYTES RELATIVE PERCENT 10 % (BEAKER) (test code = 430) MONOCYTES RELATIVE PERCENT 10 % (BEAKER) (test code = 431) EOSINOPHILS RELATIVE PERCENT 3 % (BEAKER) (test code = 432) BASOPHILS RELATIVE PERCENT 0 % (BEAKER) (test code = 437) NEUTROPHILS ABSOLUTE COUNT 8.43 K/ L 1.78-5.38 H (BEAKER) (test code = 670) LYMPHOCYTES ABSOLUTE COUNT 1.13 K/ L 1.32-3.57 L (BEAKER) (test code = 414) MONOCYTES ABSOLUTE COUNT (BEAKER) 1.05 K/ L 0.30-0.82 H (test code = 415) EOSINOPHILS ABSOLUTE COUNT 0.31 K/ L 0.04-0.54 (BEAKER) (test code = 416) BASOPHILS ABSOLUTE COUNT (BEAKER) 0.04 K/ L 0.01-0.08 (test code = 417) IMMATURE GRANULOCYTES-RELATIVE 1 % 0-1 PERCENT (BEAKER) (test code = 2801) CT, [id number] 15:38:00FINAL REPORT CT of the abdomen and pelvis, without contrast Clinical History: Scrotal mass or lump (Ped 0-18y) Technique: CT of the abdomen and pelvis is performed without intravenous contrast administration. This exam was performed according to our departmental dose optimization program which includes automated exposure control, adjustment of the mA and/or kV according to patient's size and/or use of iterative reconstructive technique. Comparison Film: CT and ultrasound dated October 20, 2019, performed at an outside institution Discussion: Visualized lower thorax is unremarkable. There is a left-sided ICD and pacemaker device. Heart is enlarged. Contrast in the distal esophagus may reflect reflux. No liver lesion is identified on this noncontrast exam. There is no biliary ductal dilatation, gallbladder is unremarkable. The spleen, pancreas, and adrenal glands are unremarkable. There is an exophytic 2.4 cm lesion arising from the posterior right kidney, probably a cyst, but not definitively characterized on this noncontrast exam. No hydronephrosis or radiopaque stone. Noevidence of bowel obstruction, or abnormal bowel wall thickening. Normal appendix. In the pelvis, bladder appears normal. Prostate gland contains dystrophic calcification. Scrotal wall appears thickened/edematous, and there is a 3.6 x 2.6 cm hypodensity in the scrotal region that may represent a necrotic mass versus abscess, this is partially imaged. No ascites, free air, or lymphadenopathy. There ismoderate vascular calcification. Bony structures demonstrate degenerative changes. Impression: Scrotal wall edema. A 3.6 x 2.6 cm incompletely imaged hypodensity in scrotal region could represent a necrotic mass, versus abscess, correlate clinically and correlate with report of prior imaging. Signed: Fitz Champagneeport Verified Date/Time: 10/23/2019 15:38:07 Reading Location: [address] Ortho Consult Reading Room CT abdomen/pelvis without iv [id number] 15:38:00Interface, External Ris In - 10/23/2019 3:[address] of the abdomen and pelvis, without contrast Clinical History: Scrotal mass or lump (Ped 0-18y) Technique: CT of the abdomen and pelvis is performed without intravenous contrast administration. This exam was performed according to our departmental dose optimization program which includes automated exposure control, adjustment of the mA and/or kV according to patient's size and/or use of iterative reconstructive technique. Comparison Film: CT and ultrasound dated October 20, 2019, performed at an outside institution Discussion: Visualized lower thorax is unremarkable. There is a left-sided ICD and pacemaker device. Heart is enlarged. Contrast in the distal esophagus may reflect reflux. No liver lesion is identified on this noncontrast exam. There is no biliary ductal dilatation, gallbladder is unremarkable. The spleen, pancreas, and adrenal glands are unremarkable. There is an exophytic 2.4 cm lesion arisingfrom the posterior right kidney, probably a cyst, but not definitively characterized on this noncontrast exam. No hydronephrosis or radiopaque stone. No evidence of bowel obstruction, or abnormal bowelwall thickening. Normal appendix. In the pelvis, bladder appears normal. Prostate gland contains dystrophic calcification. Scrotal wall appears thickened/edematous, and there is a 3.6 x 2.6 cm hypodensity in the scrotal region that may represent a necrotic mass versus abscess, this is partially imaged. No ascites, free air, or lymphadenopathy. There is moderate vascular calcification. Bony structuresdemonstrate degenerative changes. Impression: Scrotal wall edema. A 3.6 x 2.6 cm incompletely imagedhypodensity in scrotal region could represent a necrotic mass, versus abscess, correlate clinically and correlate with report of prior imaging. Signed: Fitz Champagneort Verified Date/Time: 10/23/201915:38:07 Reading Location: [facility] [id number] Ortho Consult Reading Room [facility] W/PLT COUNT & AUTO DIFFERENTIAL 2019-10-23 10:46:00 Test Item Value Reference Range Interpretation Comments WHITE BLOOD CELL COUNT 11.2 K/ L 3.5-10.5 H (BEAKER) (test code = 775) RED BLOOD CELL COUNT 4.21 M/ L 4.63-6.08 L (BEAKER) (test code = 761) HEMOGLOBIN (BEAKER) 12.0 GM/DL 13.7-17.5 L (test code = 410) HEMATOCRIT (BEAKER) 39.7 % 40.1-51.0 L (test code = 411) MEAN CORPUSCULAR 94.3 fL 79.0-92.2 H VOLUME (BEAKER) (test code = 753) MEAN CORPUSCULAR 28.5 pg 25.7-32.2 HEMOGLOBIN (BEAKER) (test code = 751) MEAN CORPUSCULAR 30.2 GM/DL 32.3-36.5 L HEMOGLOBIN CONC (BEAKER) (test code = 752) RED CELL DISTRIBUTION 13.0 % 11.6-14.4 WIDTH (BEAKER) (test code = 412) PLATELET COUNT 245 K/CU MM 150-450 (BEAKER) (test code = 756) MEAN PLATELET VOLUME Unable to report due (BEAKER) (test code = to abn ormal Platelet 754) population distribution. NUCLEATED RED BLOOD 0 /100 WBC 0-0 CELLS (BEAKER) (test code = 413) NEUTROPHILS RELATIVE 80 % PERCENT (BEAKER) (test code = 429) LYMPHOCYTES RELATIVE 8 % PERCENT (BEAKER) (test code = 430) MONOCYTES RELATIVE 9 % PERCENT (BEAKER) (test code = 431) EOSINOPHILS RELATIVE 2 % PERCENT (BEAKER) (test code = 432) BASOPHILS RELATIVE 0 % PERCENT (BEAKER) (test code = 437) NEUTROPHILS ABSOLUTE 8.97 K/ L 1.78-5.38 H COUNT (BEAKER) (test code = 670) LYMPHOCYTES ABSOLUTE 0.88 K/ L 1.32-3.57 L COUNT (BEAKER) (test code = 414) MONOCYTES ABSOLUTE 1.05 K/ L 0.30-0.82 H COUNT (BEAKER) (test code = 415) EOSINOPHILS ABSOLUTE 0.22 K/ L 0.04-0.54 COUNT (BEAKER) (test code = 416) BASOPHILS ABSOLUTE 0.04 K/ L 0.01-0.08 COUNT (BEAKER) (test code = 417) IMMATURE 1 % 0-1 GRANULOCYTES-RELATIVE PERCENT (BEAKER) (test code = 2801) BASIC METABOLIC [id number] 06:39:00 Test Item Value Reference Range Interpretation Comments SODIUM (BEAKER) 140 meq/L 136-145 (test code = 381) POTASSIUM (BEAKER) 3.9 meq/L 3.5-5.1 (test code = 379) CHLORIDE (BEAKER) 108 meq/L 98-107 H (test code = 382) CO2 (BEAKER) (test 25 meq/L 22-29 code = 355) BLOOD UREA NITROGEN 21 mg/dL 7-21 (BEAKER) (test code = 354) CREATININE (BEAKER) 1.86 mg/dL 0.57-1.25 H (test code = 358) GLUCOSE RANDOM 102 mg/dL 70-105 (BEAKER) (test code = 652) CALCIUM (BEAKER) 8.4 mg/dL 8.4-10.2 (test code = 697) EGFR (BEAKER) (test 45 mL/min/1.73 ESTIMA EUGENE GFR IS code = 1092) sq m NOT ACCURATE CREATININE CLEARANCE IN PREDICTING GLOMERULAR FILTRATION RATE . ESTIMATED GFR I S NOT APPLICABLE FOR DIALYSIS PATIEN TS. Yard Assistant ID - EDOUARD MUrinalysis w/Microscopic + Reflex to [id number] 20:39:00 Test Item Value Reference Range Interpretation Comments Color, UA (test code = Yellow 5778-6) Clarity, UA (test code = Hazy 5767-9) Specific [place], UA 1.019 1.001-1.035 (test code = 5811-5) pH, UA (test code = 5.5 5.0-8.0 5803-2) Protein, UA (test code = 50 mg/dL Negative A 56789-1) Glucose, UA (test code = Negative Negative 365) Ketones, UA (test code = Trace Negative A 2514-8) Bilirubin, UA (test code Negative Negative = 13812-2) Blood, UA (test code = Small Negative A 47894-6) Nitrite, UA (test code = Negative Negative 5802-4) Leukocytes, UA (test code Large Negative A = 5799-2) Urobilinogen, UA (test 0.2 mg/dL 0.2-1 code = 44710-6) RBC, UA (test code = 16 /HPF 67841-7) WBC, UA (test code = 319 /HPF 5821-4) Bacteria, UA (test code = Occasional 45347-6) Squam Epithel, UA (test 2 /HPF code = 63431-7) Specimen Source (test code = 2795) MARIELA (test code = MARIELA) Yard Assistant ID - [auto]Yard Assistant ID - kia Lab Interpretation (test Abnormal code = 92404-5) [facility] [id number] 20:39:00 Test Item Value Reference Range Interpretation Comments COLOR (BEAKER) (test code = 470) Yellow CLARITY (BEAKER) (test code = 469) Hazy SPECIFIC GRAVITY UA (BEAKER) (test 1.019 1.001-1.035 code = 468) PH UA (BEAKER) (test code = 467) 5.5 5.0-8.0 PROTEIN UA (BEAKER) (test code = 50 mg/dL Negative A 464) GLUCOSE UA (BEAKER) (test code = Negative Negative 365) KETONES UA (BEAKER) (test code = Trace Negative A 371) BILIRUBIN UA (BEAKER) (test code = Negative Negative 462) BLOOD UA (BEAKER) (test code = Small Negative A 461) NITRITE UA (BEAKER) (test code = Negative Negative 465) LEUKOCYTE ESTERASE UA (BEAKER) Large Negative A (test code = 466) UROBILINOGEN UA (BEAKER) (test 0.2 mg/dL 0.2-1.0 code = 463) RBC UA (BEAKER) (test code = 519) 16 /HPF WBC UA (BEAKER) (test code = 520) 319 /HPF BACTERIA (BEAKER) (test code = Occasional 517) SQUAMOUS EPITHELIAL (BEAKER) (test 2 /HPF code = 516) SOURCE(BEAKER) (test code = 2795) Yard Assistant ID - [auto]Yard Assistant ID - hankBASIC METABOLIC [id number] 05:45:00 Test Item Value Reference Range Interpretation Comments SODIUM (BEAKER) 142 meq/L 136-145 (test code = 381) POTASSIUM (BEAKER) 3.9 meq/L 3.5-5.1 (test code = 379) CHLORIDE (BEAKER) 110 meq/L 98-107 H (test code = 382) CO2 (BEAKER) (test 24 meq/L 22-29 code = 355) BLOOD UREA NITROGEN 26 mg/dL 7-21 H (BEAKER) (test code = 354) CREATININE (BEAKER) 2.03 mg/dL 0.57-1.25 H (test code = 358) GLUCOSE RANDOM 81 mg/dL 70-105 (BEAKER) (test code = 652) CALCIUM (BEAKER) 8.5 mg/dL 8.4-10.2 (test code = 697) EGFR (BEAKER) (test 41 mL/min/1.73 ESTIMA EUGENE GFR IS code = 1092) sq m NOT ACCURATE CREATININE CLEARANCE IN PREDICTING GLOMERULAR FILTRATION RATE . ESTIMATED GFR I S NOT APPLICABLE FOR DIALYSIS PATIEN TS. Yard Assistant ID - EDOUARD MSARS-CoV2/RT-PCR (Asymptomatic ONLY)2019-10-21 13:12:00 Test Item Value Reference Range Interpretation Comments SARS-COV2/RT-PCR Not Detected Not Detected, (test code = Negative 59856-4) SARS-COV-2 [facility] PER[facility] (test code = 96056-6) MARIELA (test code = Negative results do not MARIELA) preclude SARS-CoV-2 infection and should not be used as [...] of the Act. Fact Sheet for Healthcare Providers:https://www.Going/Documents/Xper t%20Xpress%20SARS%20CoV- 2/Fact%20Sheets/3023802 %43VBMB-XYV-6%20HEALTHCA RE%20PROVIDERS%20FACT%20 SHEET.pdf Fact Sheet for Healthcare Patients:https://www.Mobile Ads/Documents/Xpert %20Xpress%20SARS%20CoV-2 /Fact%20Sheets/3023801% 87YGBW-LCZ-8%20PATIENT%2 0FACT%20SHEET.pdf Performing Laboratory:[facility] [place], [place] [id number] [place], [place] [address]ARS-COV2/RT-PCR ([facility] REF LAB[facility])2019-10-21 13:12:00 Test Item Value Reference Range Interpretation Comments SARS-COV2/RT-PCR (test Not Detected Not Detected, Negative code = 5894023) SARS-COV-2 PERFORMING LAB [facility] (test code = 8406479) Negative results do not preclude SARS-CoV-2 infection and should not be used as the sole basis for patient management decisions. Negative results must be combined with clinical observations, patient history, and epidemiological information. A false negative result may occur if a specimen is improperly collected, transported or handled.The limit of detection for this assay is 250 copies/mL.This SARS CoV-2 test is a rapid, real-time RT-PCR test intended for the qualitative detection of nucleic acid from SARS-CoV-2 in a nasopharyngeal swab specimen collected from individuals suspected of COVID-19 by their healthcare provider.This test has not been Food and Drug [...] is revoked under Section 564(g) of the Act.Fact Sheet for Healthcare Pro viders:https://www.twiDAQ/Documents/Xpert%20Xpress%20SARS%20CoV-2/Fact%20Sh eets/302-3802%03PDMF-NCX-8%20HEALTHCARE%20PROVIDERS%20FACT%20SHEET.pdfFact Sheet for Healthcare Patients:https://www.Skyonic/Documents/Xpert%20Xpress%20SARS%20CoV-2/Fact%20Sheets/302-3801%20SARS-COV -2%20PATIENT%20FACT%20SHEET.pdfPerforming Laboratory:[facility], [place] [address]EXT W/PLT COUNT & AUTO DIFFERENTIAL 2019-10-21 06:34:00 Test Item Value Reference Range Interpretation Comments WHITE BLOOD CELL COUNT (BEAKER) 15.5 K/ L 3.5-10.5 H (test code = 775) RED BLOOD CELL COUNT (BEAKER) 4.76 M/ L 4.63-6.08 (test code = 761) HEMOGLOBIN (BEAKER) (test code = 13.8 GM/DL 13.7-17.5 410) HEMATOCRIT (BEAKER) (test code = 45.8 % 40.1-51.0 411) MEAN CORPUSCULAR VOLUME (BEAKER) 96.2 fL 79.0-92.2 H (test code = 753) MEAN CORPUSCULAR HEMOGLOBIN 29.0 pg 25.7-32.2 (BEAKER) (test code = 751) MEAN CORPUSCULAR HEMOGLOBIN CONC 30.1 GM/DL 32.3-36.5 L (BEAKER) (test code = 752) RED CELL DISTRIBUTION WIDTH 13.2 % 11.6-14.4 (BEAKER) (test code = 412) PLATELET COUNT (BEAKER) (test 241 K/CU MM 150-450 code = 756) MEAN PLATELET VOLUME (BEAKER) 13.3 fL 9.4-12.4 H (test code = 754) NUCLEATED RED BLOOD CELLS 0 /100 WBC 0-0 (BEAKER) (test code = 413) NEUTROPHILS RELATIVE PERCENT 85 % (BEAKER) (test code = 429) LYMPHOCYTES RELATIVE PERCENT 5 % (BEAKER) (test code = 430) MONOCYTES RELATIVE PERCENT 8 % (BEAKER) (test code = 431) EOSINOPHILS RELATIVE PERCENT 1 % (BEAKER) (test code = 432) BASOPHILS RELATIVE PERCENT 0 % (BEAKER) (test code = 437) NEUTROPHILS ABSOLUTE COUNT 13.15 K/ L 1.78-5.38 H (BEAKER) (test code = 670) LYMPHOCYTES ABSOLUTE COUNT 0.84 K/ L 1.32-3.57 L (BEAKER) (test code = 414) MONOCYTES ABSOLUTE COUNT (BEAKER) 1.22 K/ L 0.30-0.82 H (test code = 415) EOSINOPHILS ABSOLUTE COUNT 0.20 K/ L 0.04-0.54 (BEAKER) (test code = 416) BASOPHILS ABSOLUTE COUNT (BEAKER) 0.03 K/ L 0.01-0.08 (test code = 417) IMMATURE GRANULOCYTES-RELATIVE 1 % 0-1 PERCENT (BEAKER) (test code = 2801) Prothrombin time/[id number] 06:15:00 Test Item Value Reference Range Interpretation Comments Protime (test code = 19.9 11.9- 14.2 H 5902-2) seconds INR (test code = 1.7 <=5.9 6301-6) MARIELA (test code = MARIELA) Effective 09/30/2018: PT Reference Range ChangeNew: 11.9-14.2 Previous: 11.7-14.7 RECOMMENDED COUMADIN/WARFARIN INR THERAPY RANGESSTANDARD DOSE: 2.0-3.0 Includes: PROPHYLAXIS for venous thrombosis, systemic embolization; TREATMENT for venous thrombosis and/or pulmonary embolus.HIGH RISK: Target INR is 2.5-3.5 for patients wiht mechanical heart valves. Lab Interpretation Abnormal (test code = 62891-0) [id number] 06:15:00 Test Item Value Reference Range Interpretation Comments Protime (test code = 19.9 11.9- 14.2 H 5902-2) seconds INR (test code = 1.7 <=5.9 6301-6) PTT (test code = 35.5 22.5- 36.0 04301-9) seconds MARIELA (test code = MARIELA) Effective 09/30/2018: PT Reference Range ChangeNew: 11.9-14.2 Previous: 11.7-14.7 RECOMMENDED COUMADIN/WARFARIN INR THERAPY RANGESSTANDARD DOSE: 2.0-3.0 Includes: PROPHYLAXIS for venous thrombosis, systemic embolization; TREATMENT for venous thrombosis and/or pulmonary embolus.HIGH RISK: Target INR is 2.5-3.5 for patients wiht mechanical heart valves. Lab Interpretation Abnormal (test code = 09073-3) [facility] CenterPROTHROMBIN TIME/[id number] 06:15:00 Test Item Value Reference Range Interpretation Comments PROTIME (BEAKER) (test code = 19.9 seconds 11.9-14.2 H 759) INR (BEAKER) (test code = 370) 1.7 <=5.9 Effective 09/30/2018: PT Reference Range ChangeNew: 11.9-14.2 Previous: 11.7- 14.7RECOMMENDED COUMADIN/WARFARIN INR THERAPY RANGESSTANDARD DOSE: 2.0-3.0 Includes: PROPHYLAXIS for venous thrombosis, systemic embolization; TREATMENT for venous thrombosis and/or pulmonary embolus.HIGH RISK: Target INR is2.5-3.5 for patients wiht mechanical heart valves.PT/[id number] 06:15:00 Test Item Value Reference Range Interpretation Comments PROTIME (BEAKER) (test code = 19.9 seconds 11.9-14.2 H 759) INR (BEAKER) (test code = 370) 1.7 <=5.9 PARTIAL THROMBOPLASTIN TIME 35.5 seconds 22.5-36.0 (BEAKER) (test code = 760) Effective 09/30/2018: PT Reference Range ChangeNew: 11.9-14.2 Previous: 11.7- 14.7RECOMMENDED COUMADIN/WARFARIN INR THERAPY RANGESSTANDARD DOSE: 2.0-3.0 Includes: PROPHYLAXIS for venous thrombosis, systemic embolization; TREATMENT for venous thrombosis and/or pulmonary embolus.HIGH RISK: Target INR is2.5-3.5 for patients wiht mechanical heart valves.Hepatic function [id number] 05:53:00 Test Item Value Reference Range Interpretation Comments Protein, Total (test code 8.1 6.0- 8.3 gm/dL = 2885-2) Albumin (test code = 3.6 g/dL 3.5-5 90737-4) Total Bilirubin (test code 0.9 mg/dL 0.2-1.2 = 1975-2) Bilirubin, Direct (test 0.5 mg/dL 0.1-0.5 code = 1968-7) Alkaline Phosphatase (test 122 U/L 40-150 code = 6768-6) AST (test code = 1920-8) 19 U/L 5-34 ALT (test code = 1742-6) 15 U/L 6-55 MARIELA (test code = MARIELA) Yard Assistant ID - EDOUARD M Lab Interpretation (test Normal code = 66109-0) [facility] CenterHEPATIC FUNCTION [id number] 05:53:00 Test Item Value Reference Range Interpretation Comments TOTAL PROTEIN (BEAKER) (test code = 8.1 gm/dL 6.0-8.3 770) ALBUMIN (BEAKER) (test code = 1145) 3.6 g/dL 3.5-5.0 BILIRUBIN TOTAL (BEAKER) (test code 0.9 mg/dL 0.2-1.2 = 377) BILIRUBIN DIRECT (BEAKER) (test 0.5 mg/dL 0.1-0.5 code = 706) ALKALINE PHOSPHATASE (BEAKER) (test 122 U/L 40-150 code = 346) AST (SGOT) (BEAKER) (test code = 19 U/L 5-34 353) ALT (SGPT) (BEAKER) (test code = 15 U/L 6-55 347) Yard Assistant ID - EDOUARD MBASIC METABOLIC [id number] 05:53:00 Test Item Value Reference Range Interpretation Comments SODIUM (BEAKER) 147 meq/L 136-145 H (test code = 381) POTASSIUM (BEAKER) 4.3 meq/L 3.5-5.1 (test code = 379) CHLORIDE (BEAKER) 111 meq/L 98-107 H (test code = 382) CO2 (BEAKER) (test 23 meq/L 22-29 code = 355) BLOOD UREA NITROGEN 26 mg/dL 7-21 H (BEAKER) (test code = 354) CREATININE (BEAKER) 2.03 mg/dL 0.57-1.25 H (test code = 358) GLUCOSE RANDOM 80 mg/dL 70-105 (BEAKER) (test code = 652) CALCIUM (BEAKER) 9.4 mg/dL 8.4-10.2 (test code = 697) EGFR (BEAKER) (test 41 mL/min/1.73 ESTIMA EUGENE GFR IS code = 1092) sq m NOT ACCURATE CREATININE CLEARANCE IN PREDICTING GLOMERULAR FILTRATION RATE . ESTIMATED GFR I S NOT APPLICABLE FOR DIALYSIS PATIEN TS. Yard Assistant ELIDIA - EDOUARD Dejesus
[2019-12-11] MEDS ORDERED: NA CHLORIDE 0.9% 1,000 ML ONE ×2 (12:19→12:45)
[2019-12-11] MEDS ORDERED: ONDANSETRON 4 MG/2 ML VIAL ONE (12:35)
[2019-12-11 13:11] LABS: Absolute Lymphocytes (CBC) 0.7 K/uL (0.7-4.9); Basophils % 0.2 % (0-1.3)
[2019-12-11 13:22] LABS: Hematocrit 37.3 % (39.6-49.0); Lymphocytes % 5.2 % (15.3-44.8); MPV 15.6 fL (7.6-11.3); Protime INR 1.39; RBC Red Blood Cell Count 4.08 M/uL (4.33-5.43)
[2019-12-11] MEDS ORDERED: VANCOMYCIN 1 GM/VIAL ONE ×2 (13:39→14:42)
[2019-12-11] MEDS ORDERED: NA CHLORIDE 0.9% 250 ML ONE ×2 (13:39→14:42)
[2019-12-11] MEDS ORDERED: NA CHLORIDE 0.9% 100 ML IV ONE (13:39)
[2019-12-11] MEDS ORDERED: CEFEPIME 2 GM VIAL ONE (13:39)
[2019-12-11 13:47] LABS: Blood Morphology Comment NOT SEEN (NOT SEEN); Platelet Estimate ADEQ
[2019-12-11 13:48] LABS: Platelets, Giant FEW
[2019-12-11 13:48] LABS: Blood O2 Saturation 81.6 % (92-98.5)
[2019-12-11 14:09] LABS: Albumin 2.6 g/dL (3.4-5.0); Bilirubin Direct 0.3 mg/dL (0-0.2); Bilirubin Total 0.5 mg/dL (0.2-1.0); CKMB Creatine Kinase MB 3.6 ng/mL (0.3-3.6); Potassium 4.4 mmol/L (3.5-5.1); Protein, Total 7.8 g/dL (6.4-8.2); Troponin (Emerg Dept Use Only) 0.05 ng/mL (0.0-0.045)
--- NOTE | 2019-12-11 14:36 | RAD REPORT ---
EXAM DESCRIPTION: RAD - Chest Single View - 12/11/2019 1:52 pm CLINICAL HISTORY: possible aspiration, vomiting, suspected aspiration COMPARISON: Portable October 20, 2019 TECHNIQUE: AP portable chest image was obtained 12/11/2019 1:52 pm . FINDINGS: Lung volumes are low. Retrocardiac left base opacification is present obscuring the left h emidiaphragm. Aspiration pneumonia is certainly possible. Infectious pneumonia can have this presenta tion as well. Right lung field is clear. Trachea is midline. Defibrillator is in place. Heart size and vasculature are accentuated by supine s hallow inspiration portable exam. No measurable pleural effusion and no pneumothorax. No acute bony a bnormality seen. No acute aortic findings suspected. IMPRESSION: Left base opacification is present obscuring the left hemidiaphragm and portions of the left heart border. Given the provided history, left lung base aspiration would be the primary consideration. An infectio us pneumonia can have a similar presentation.
[2019-12-11] MEDS ORDERED: NOREPINEPHRINE 4mg/D5W 250mL 4 MG/250 ML BAG IV ONE ×3 (14:43→21:22)
--- NOTE | 2019-12-11 15:22 | EDPHYS ---
Physician Documentation [facility] Name: Isael Salas Jr Age: 59 yrs Sex: Male : 1960 Arrival Date: 12/11/2019 Time: 12:10 Bed 27 Private MD: ED Physician Sky Loredo HPI: 12/10 13:41 This 59 yrs old Black Male presents to ER via EMS with complaints of vomiting . jr8 15:05 Onset: The symptoms/episode began/occurred suddenly, 2 day(s) ago, and became jr8 persistent. Possible causes: unknown. The symptoms are aggravated by nothing. The symptoms are alleviated by nothing. Associated signs and symptoms: The patient has no apparent associated signs or symptoms. Severity of symptoms: At their worst the symptoms were moderate in the emergency department the symptoms are unchanged. The patient has not experienced similar symptoms in the past. The patient has not recently seen a physician. Family stated that since patient early November, he has been declining in mental status and has not been wanting to eat, drink, or take care of himself. Stated that for the past two days is now vomiting and noticed decrease in urine output. History of CVA with right sided weakness, decreased mental status, and decreased verbal communication. Daughter stated that since his he is not completely non verbal . Historical: - Allergies: 12:10 No Known Allergies; aa5 - PMHx: 12:10 CHF; CVA; Hypertension; LOW POTASSIUM; aa5 - PSHx: 12:10 Pacemaker; aa5 - Immunization history:: Adult Immunizations unknown. - Social history:: Smoking status: unknown. ROS: 15:05 Unable to obtain ROS due to altered mental status. jr8 Exam: 15:05 Eyes: Pupils equal round and reactive to light, extra-ocular motions intact. Lids and jr8 lashes normal. Conjunctiva and sclera are non-icteric and not injected. Cornea within normal limits. Periorbital areas with no swelling, redness, or edema. ENT: Nares patent. No nasal discharge, no septal abnormalities noted. Tympanic membranes are normal and external auditory canals are clear. Oropharynx with no redness, swelling, or masses, exudates, or evidence of obstruction, uvula midline. Mucous membranes dry. Cardiovascular: Regular rate and rhythm with a normal S1 and S2. No gallops, murmurs, or rubs. Normal PMI, no JVD. No pulse deficits. Respiratory: Lungs have equal breath sounds bilaterally, shalow, clear to auscultation and percussion. No rales, rhonchi or wheezes noted. No increased work of breathing, no retractions or nasal flaring. Abdomen/GI: Soft, with normal bowel sounds. No distension or tympany. No guarding or rebound. No evidence of tenderness throughout. Skin: cool, dry with decreased turgor. Normal color with no rashes, no lesions, and no evidence of cellulitis. MS/ Extremity: Pulses equal, no cyanosis. Neurovascular intact. 15:05 Neuro: Orientation: Not oriented to person, place, time, situation, Mentation: able to follow commands, Memory: unable to test, Motor: moves all fours, Sensation: no obvious gross deficits, Abnormal movements: there are no abnormal movements. Vital Signs: 12:10 BP 68 / 50; Pulse 68; Resp 20 S; Pulse Ox 85% on R/A; aa5 12:11 Pulse Ox 90% on 4 lpm NC; aa5 12:15 BP 71 / 54; Pulse 70; Pulse Ox 93% on 4 lpm NC; aa5 12:20 BP 75 / 66; Pulse 71; Resp 22 S; Pulse Ox 94% on 4 lpm NC; aa5 12:20 Temp 91.9(R); aa5 12:25 BP 87 / 69; Pulse 68; Pulse Ox 92% on 4 lpm NC; aa5 12:35 Weight 72.57 kg; ah 12:35 BP 70 / 51; Pulse 62; Pulse Ox 88% on 4 lpm NC; aa5 13:24 BP 83 / 57; Pulse 75; Resp 14 S; Pulse Ox 88% on 4 lpm NC; iw 14:44 BP 94 / 62; Pulse 73; Resp 17; Pulse Ox 93% on 5 lpm NC; iw 14:49 BP 112 / 76; Pulse 71; Resp 15 S; Pulse Ox 92% on 5 lpm NC; iw 15:28 BP 102 / 63; Pulse 71; Resp 15 S; Temp 95.0(TE); Pulse Ox 91% on 5 lpm NC; iw 17:08 BP 99 / 70; Pulse 93; Resp 19; Temp 96.4(TE); Pulse Ox 90% on 5 lpm NC; iw 17:58 BP 106 / 75; Pulse 105; Resp 21; Pulse Ox 91% on 5 lpm NC; iw Procedures: 15:05 Central Line: the site was prepped with Betadine, in sterile fashion, a triple lumen jr8 catheter was inserted, in the right femoral vein, in 1 attempts. placement was verified, by blood return, the site was dressed with 4X4s, Tegaderm, using sterile technique, the patient tolerated the procedure, well. MDM: 12:12 Patient medically screened. jr8 15:05 Data reviewed: vital signs, nurses notes, lab test result(s), EKG, radiologic studies, jr8 plain films. Data interpreted: Pulse oximetry: on room air is 92 %. Interpretation: borderline. Counseling: I had a detailed discussion with the patient and/or guardian regarding: the historical points, exam findings, and any diagnostic results supporting the discharge/admit diagnosis, lab results, radiology results, the need for further work-up and treatment in the hospital. ED course: Consulted Dr. Hernandez and will see patient. Admitted to Dr. Palacio. 12/10 12:26 Order name: Amylase, Serum aa5 12/10 12:26 Order name: Basic Metabolic Panel aa5 12/10 12:26 Order name: Blood Culture Adult (2) aa5 12/10 12:26 Order name: CBC with Diff aa5 12/10 12:26 Order name: Ckmb aa5 12/10 12:26 Order name: CPK aa5 12/10 12:26 Order name: Lactate aa5 12/10 12:26 Order name: LFT's aa5 12/10 12:26 Order name: Lipase aa5 12/10 12:26 Order name: Procalcitonin aa5 12/10 12:26 Order name: Protime (+inr) aa5 12/10 12:26 Order name: Ptt, Activated aa5 12/10 12:26 Order name: Troponin (emerg Dept Use Only) aa5 12/10 12:26 Order name: Urine Microscopic Only aa5 12/10 12:44 Order name: Glucose, Ancillary Testing; Complete Time: 13:06 EDMS 12/10 13:07 Order name: ABG [facility] 12/10 13:25 Order name: Protime (+INR); Complete Time: 13:31 EDMS 12/10 13:25 Order name: PTT, Activated Partial Thromb; Complete Time: 13:31 EDMS 12/10 13:30 Order name: Lactate; Complete Time: 13:31 EDMS 12/10 13:30 Order name: COVID-19 8 12/10 13:46 Order name: CBC with Automated Diff; Complete Time: 13:54 EDMS 12/10 13:47 Order name: Procalcitonin; Complete Time: 13:54 EDMS 12/10 13:48 Order name: Manual Differential; Complete Time: 13:54 EDMS 12/10 14:11 Order name: Basic Metabolic Panel; Complete Time: 14:13 EDMS 12/10 14:11 Order name: Liver (Hepatic) Function; Complete Time: 14:13 EDMS 12/10 14:11 Order name: Creatine Phosphokinase; Complete Time: 14:13 EDMS 12/10 14:11 Order name: CKMB Creatine Kinase MB; Complete Time: 14:13 EDMS 12/10 14:11 Order name: Troponin (Emerg Dept Use Only); Complete Time: 14:13 EDMS 12/10 14:11 Order name: Amylase; Complete Time: 14:13 EDMS 12/10 14:11 Order name: Lipase; Complete Time: 14:13 EDMS 12/10 12:26 Order name: Chest Single View XRAY aa5 12/10 14:36 Order name: RAD; Complete Time: 14:43 EDMS 12/10 14:57 Order name: CORONAVIRUS EDSD 12/10 15:22 Order name: Uric Acid [facility] 12/10 15:57 Order name: SARS-COV-2 RT PCR; Complete Time: 16:07 EDMS 12/10 15:58 Order name: ABG Arterial Blood Gas; Complete Time: 16:07 EDMS 12/10 17:31 Order name: Uric Acid; Complete Time: 17:34 EDMS 12/10 20:05 Order name: Creatine Phosphokinase; Complete Time: 06:12 EDMS 12/10 20:05 Order name: Troponin I; Complete Time: 06:12 EDMS 12/10 20:14 Order name: Basic Metabolic Panel; Complete Time: 06:12 EDMS 12/11 06:09 Order name: CBC with Automated Diff; Complete Time: 06:57 EDMS 08/09 06:31 Order name: Troponin I; Complete Time: 06:50 EDMS 08 06:44 Order name: Basic Metabolic Panel; Complete Time: 06:50 EDMS 12/11 06:44 Order name: T4 Free; Complete Time: 06:50 EDMS 12/11 06:44 Order name: Magnesium; Complete Time: 06:50 EDMS 12/11 06:44 Order name: Thyroid Stimulating Hormone; Complete Time: 06:50 EDMS 12/11 06:56 Order name: CBC Smear Scan; Complete Time: 06:57 EDMS 12/11 10:31 Order name: Blood Culture EDMS 12/11 10:31 Order name: Gram Stain--Aerobic Bottle EDMS 12/11 11:55 Order name: RAD; Complete Time: 12:04 EDMS 12/11 11:56 Order name: US; Complete Time: 12:04 EDMS 12/11 15:59 Order name: Troponin I; Complete Time: 15:08 EDMS 12/11 16:06 Order name: Cortisol; Complete Time: 15:08 EDMS 12/12 05:02 Order name: CBC with Automated Diff; Complete Time: 15:08 EDMS 12/12 05:02 Order name: Retic Count; Complete Time: 15:08 EDMS 08 05:35 Order name: PTH Intact; Complete Time: 15:08 EDMS 12/12 08:03 Order name: Renal Panel; Complete Time: 15:08 EDMS 12/12 08:03 Order name: Magnesium; Complete Time: 15:08 EDMS 12/12 08:03 Order name: Transferrin Sat/Iron Binding; Complete Time: 15:08 EDMS 12/12 08:03 Order name: Ferritin; Complete Time: 15:08 EDMS 12/12 08:03 Order name: Folic Acid, (Folate); Complete Time: 15:08 EDMS 12/12 08:03 Order name: Vitamin B12 Level; Complete Time: 15:08 EDMS 12/10 12:26 Order name: Accucheck; Complete Time: 13:00 aa5 12/10 12:26 Order name: Cardiac monitoring; Complete Time: 13:00 aa5 12/10 12:26 Order name: EKG - Nurse/Tech; Complete Time: 13:00 aa5 12/10 12:26 Order name: IV Saline Lock - Large Bore; Complete Time: 13:00 aa5 12/10 12:26 Order name: Labs collected and sent; Complete Time: 13:00 aa5 12/10 12:26 Order name: O2 Per Protocol; Complete Time: 13:01 aa12/10 12:26 Order name: O2 Sat Monitoring; Complete Time: 13:01 12/10 13:07 Order name: Radha Olguin; Complete Time: 13:16 jr8 12/11 13:54 Order name: RAD; Complete Time: 14:39 EDMS 12/11 14:16 Order name: RAD; Complete Time: 14:39 EDMS Administered Medications: 12:27 Drug: NS 0.9% (30 ml/kg) 30 ml/kg Route: IV; Rate: bolus; Site: left hand; aa5 12:27 Drug: Zofran (Ondansetron) 4 mg Route: IVP; Site: right hand; 13:30 Drug: Cefepime 2 grams Route: IVPB; Rate: 200 ml/hr; Infused Over: 30 mins; Site: right iw femoral; 13:39 Drug: vancoMYCIN 1 grams Route: IVPB; Infused Over: 2 hrs; Site: right femoral; iw 14:43 Drug: Levophed (4 mg/250 mL D5W 4 mcg/min Route: IV; Rate: calculated rate; Site: right iw femoral; 15:27 Follow up: Rate change 18 mcg/min iw 18:13 Not Given (Physician Discretion): NS 0.9% 1000 ml IV at 125 ml/hr continuous iw Disposition: 12/11/19 15:21 Hospitalization ordered by Prince Amanda for Inpatient Admission. Preliminary diagnosis are Failure to Thrive , Acute kidney failure, Dehydration, Hypovolemic shock, Hypothermia. - Bed requested for Telemetry/MedSurg (observation). - Status is Inpatient Admission. wh - Condition is Serious. - Problem is new. - Symptoms have improved. Addendum: 12/20/2019 07:04 Co-signature as Attending Physician, Sky Loredo MD. r n Signatures: Dispatcher [employer] Deyanira Olguin RN RN iw Nieto, Roman, MD MD rn Calderon, Audri RN RN aa5 Candelario Lyon PA PA jr8 Maribeth Smith RN RN Babak Jacobsen Arias Carmichael RN RN 1 Rebekah Blanchard RN RN Corrections: (The following items were deleted from the chart) 12/10 16:37 15:21 Hospitalization Ordered by Prince Amanda RICK for Inpatient Admission. Preliminary ja1 diagnosis is Failure to Thrive ; Acute kidney failure; Dehydration; Hypovolemic shock; Hypothermia. Bed requested for Intensive Care Unit. Status is Inpatient Admission. Condition is Serious. Problem is new. Symptoms have improved. 8 16:37 16:37 12/11/2019 15:21 Hospitalization Ordered by Prince Amanda RICK for Inpatient ja1 Admission. Preliminary diagnosis is Failure to Thrive ; Acute kidney failure; Dehydration; Hypovolemic shock; Hypothermia. Bed requested for [facility] ER HOLD. Status is Inpatient Admission. Condition is Serious. Problem is new. Symptoms have improved. 12/12 21:57 12/10 16:37 12/11/2019 15:21 Hospitalization Ordered by Prince Amanda RICK for Inpatient Admission. Preliminary diagnosis is Failure to Thrive ; Acute kidney failure; Dehydration; Hypovolemic shock; Hypothermia. Bed requested for [facility] ER HOLD. Status is Inpatient Admission. Condition is Serious. Problem is new. Symptoms have improved. 12/13 00:00 12/12 21:57 12/11/2019 15:21 Hospitalization Ordered by Prince Amanda RICK for Inpatient Admission. Preliminary diagnosis is Failure to Thrive ; Acute kidney failure; Dehydration; Hypovolemic shock; Hypothermia. Bed requested for Telemetry/MedSurg (observation). Status is Inpatient Admission. Condition is Serious. Problem is new. Symptoms have improved. cg
--- NOTE | 2019-12-11 15:22 | ER ---
Nurse's Notes [facility] Name: Isael Salas Jr Age: 59 yrs Sex: Male : 1960 Arrival Date: 12/11/2019 Time: 12:10 Bed 27 Private MD: Diagnosis: Failure to Thrive ;Acute kidney failure;Dehydration;Hypovolemic shock;Hypothermia Presentation: 12/10 12:10 Acuity: MELANI 2 aa5 12:10 Chief complaint: EMS states: pt vomited and possibly aspirated as reported by family. aa5 EMS also reports family reported AMS. EMS reports BP 80/30, HR 60, O2 sat 93% via NC. Pt's baseline as reported by EMS is non-verbal. EMS reports negative COVID-19 results approximately 1 week ago. Pt currently non-verbal and unable to follow-commands, right-sided weakness noted. Coronavirus screen: At this time, the client does not indicate any symptoms associated with coronavirus-19. Ebola Screen: Unable to complete the Ebola screening because:. Risk Assessment: Do you want to hurt yourself or someone else? Unable to obtain. Onset of symptoms was December 11, 2019. 12:10 Method Of Arrival: EMS: [facility] aa5 12:10 Care prior to arrival: Glucose check: 140. aa5 12:20 Initial Sepsis Screen: Does the patient meet any 2 criteria? RR > 20 per min. Temp aa5 <36.0*C (96.8*F)) or > 38.3*C (100.9*F). Yes Does the patient have a suspected source of infection? Yes:. Triage Assessment: 17:09 General: Appears in no apparent distress. iw 17:58 General: Behavior is calm. iw 08 23:59 Pain: Denies pain. wh Historical: - Allergies: 12/10 12:10 No Known Allergies; aa5 - PMHx: 12:10 CHF; CVA; Hypertension; LOW POTASSIUM; aa5 - PSHx: 12:10 Pacemaker; aa5 - Immunization history:: Adult Immunizations unknown. - Social history:: Smoking status: unknown. Screenin:49 Abuse screen: Denies threats or abuse. Nutritional screening: Difficulty iw chewing/swallowing? Yes. Tuberculosis screening: No symptoms or risk factors identified. Fall Risk IV access (20 points). Assessment: 12:25 Reassessment: Radha Hugger Warmer blanket placed on pt. . aa5 12:37 Reassessment: Pt's daughter states "he used to talk a little but he quit when my mom aa5 in November and he doesn't want to eat now". Pt's daughter reports nausea/vomiting x 2 days ago and reports vomit is brown in color. . 13:25 Reassessment: attempt gray insertion X 2 , unsuccessful, SHAUN Palomino notified, will try iw 12 fr coud. 13:40 Reassessment: antibiotics started to central line, fluid bolus infusing to central iw line, RT at bedside for ABG, pt nonverbal , pt moans to painful stimuli, BP up to 83/57. 14:45 Reassessment: unable to obtain urine specimen, Bladder scanner shows no urine in iw bladder, BP dropped to 67/53, pt started on Levophed drip per MAR, started at 15 mcg/min to central line, fluid bolus is complete, vancomycin infusion continued. 15:27 Reassessment: Patient appears in no apparent distress at this time. Dr. Patel and crystal Acuña, GATE MORTISER OPERATOR at bedside to speak with daughter. 17:09 Reassessment: Patient appears in no apparent distress at this time. pt sitting up , HOB iw upright, pt looking around, pt was able to drink small sips of water through straw, pt nonverbal but able to follow simple commands like squeezing hand. Vital Signs: 12:10 BP 68 / 50; Pulse 68; Resp 20 S; Pulse Ox 85% on R/A; aa5 12:11 Pulse Ox 90% on 4 lpm NC; aa5 12:15 BP 71 / 54; Pulse 70; Pulse Ox 93% on 4 lpm NC; aa5 12:20 BP 75 / 66; Pulse 71; Resp 22 S; Pulse Ox 94% on 4 lpm NC; aa5 12:20 Temp 91.9(R); aa5 12:25 BP 87 / 69; Pulse 68; Pulse Ox 92% on 4 lpm NC; aa5 12:35 Weight 72.57 kg; ah 12:35 BP 70 / 51; Pulse 62; Pulse Ox 88% on 4 lpm NC; aa5 13:24 BP 83 / 57; Pulse 75; Resp 14 S; Pulse Ox 88% on 4 lpm NC; iw 14:44 BP 94 / 62; Pulse 73; Resp 17; Pulse Ox 93% on 5 lpm NC; iw 14:49 BP 112 / 76; Pulse 71; Resp 15 S; Pulse Ox 92% on 5 lpm NC; iw 15:28 BP 102 / 63; Pulse 71; Resp 15 S; Temp 95.0(TE); Pulse Ox 91% on 5 lpm NC; iw 17:08 BP 99 / 70; Pulse 93; Resp 19; Temp 96.4(TE); Pulse Ox 90% on 5 lpm NC; iw 17:58 BP 106 / 75; Pulse 105; Resp 21; Pulse Ox 91% on 5 lpm NC; iw ED Course: 12:10 Patient arrived in ED. 12:10 Patient has correct armband on for positive identification. Placed in gown. Bed in low aa5 position. Side rails up X2. color television console monitor on. Pulse ox on. NIBP on. 12:12 Candelario Lyon PA is PHCP. jr8 12:12 Sky Loredo MD is Attending Physician. jr8 12:27 Inserted saline lock: 22 gauge in left hand, using aseptic technique. aa5 12:35 Unable to collect blood at this time, pt is a hard stick, PA was notified, pt being aa5 prepared for central line placement. 12:55 Assisted provider with central line placement. Set up central line tray. Triple lumen aa5 line placed in right femoral. Line placed by Candelario DUNN Placement verified by blood return, Dressed with Tegaderm, Blood was collected. Patient tolerated well. 12:55 Initial lab(s) drawn, by ED staff, sent to lab. aa5 13:06 Triage completed. aa5 13:24 Deyanira Begum, RN is Primary Nurse. iw 15:19 Prince Patel MD is Hospitalizing Provider. jr8 12/12 23:59 Patient admitted, IV remains in place. 12/13 00:00 Patient placed to room 203. wh Administered Medications: 12/10 12:27 Drug: NS 0.9% (30 ml/kg) 30 ml/kg Route: IV; Rate: bolus; Site: left hand; aa5 12:27 Drug: Zofran (Ondansetron) 4 mg Route: IVP; Site: right hand; ah 13:30 Drug: Cefepime 2 grams Route: IVPB; Rate: 200 ml/hr; Infused Over: 30 mins; Site: right iw femoral; 13:39 Drug: vancoMYCIN 1 grams Route: IVPB; Infused Over: 2 hrs; Site: right femoral; iw 14:43 Drug: Levophed (4 mg/250 mL D5W 4 mcg/min Route: IV; Rate: calculated rate; Site: right iw femoral; 15:27 Follow up: Rate change 18 mcg/min iw 18:13 Not Given (Physician Discretion): NS 0.9% 1000 ml IV at 125 ml/hr continuous iw Outcome: 15:21 Decision to Hospitalize by Provider. [facility] 21:27 Condition: stable gerry 12/12 23:59 Admitted to Med/surg accompanied by nurse, accompanied by tech, via stretcher, room wh 203, with oxygen, with chart, Report called to Karthik Jay RN Condition: stable Instructed on the need for admit. 12/13 00:00 Patient left the ED. Signatures: Deyanira Begum, EMRE ANDREA Noelle Peace RN RN [facility] Candelario Lyon PA PA jr8 Xiomara Medina RN RN Babak Jacobsen Rebekah Blanchard, RN EMRE Corrections: (The following items were deleted from the chart) 12/10 13:09 12:37 Reassessment: Pt's daughter states "he used to talk a little but he quit when my aa5 mom in November and he doesn't want to eat now". Pt's daughter reports nausea/vomiting x 2 days ago. . aa5 13:15 12:10 Chief complaint: EMS states: pt vomited and possibly aspirated as reported by aa5 family. EMS also reports family reported AMS. EMS reports BP 80/30, HR 60, O2 sat 93% via NC. Pt's baseline as reported by EMS is non-verbal. EMS reports negative COVID-19 results approximately 1 week ago. [facility] 15:29 15:28 BP 102 / 63; Pulse 71bpm; Resp 15bpm; Spontaneous; Pulse Ox 91% 5 lpm Nasal iw Cannula; iw
[2019-12-11] MEDS ORDERED: LORazepam 2 MG/ML VIAL ONE (15:23)
--- NOTE | 2019-12-11 16:37 | P.HP ---
Certification for Inpatient Patient admitted to: Inpatient With expected LOS: >2 Midnights Patient will require the following post-hospital care: None Practitioner: I am a practitioner with admitting privileges, knowledge of patient current condition, hospital course, and medical plan of care. Services: Services provided to patient in accordance with Admission requirements found in Title 42 Section 412.3 of the Code of Federal Regulations Patient History Date of Service: 12/11/19 Primary Care Provider: Dr. Lynch Reason for admission: Acute renal failure History of Present Illness: Mr. Salas is a 59-year-old male with history of CVA, CHF, hypertension who presented emergency department for altered mental status a failure to thrive. Daughter who is power of finance attorney reports that patient's in the recent past and since then he has been refusing to eat or take any medications. Patient is at baseline mental status, he looks around the room and does follow some simple commands but does not speak. Initially patient's rectal temperature was 91 F, blood pressure very low in the 60s to 70 systolic initially. Patient with some history of chronic kidney disease. During his evaluation in the emergency department patient was found to be in acute renal failure with a creatinine of 16, BUN 234, GFR 4, sodium 160. Patient was given aggressive fluid resuscitation, right femoral central line was placed in the emergency department, patient was started on vasopressors (Levophed) discussed circumstances with daughter and other family members who believe that is appropriate at this time to make him a DNR/DNI. These papers were signed in the emergency department with [id number], physician, myself, witness. Will continue with noninvasive treatments including vasopressor support, antibiotics for likely aspiration pneumonia, consult with nephrology for acute renal failure. Will discuss plan of care further with family as his response to treatment progresses. Nephrology was consulted while the patient was in the emergency department. Allergies No Known Allergies Allergy (Verified 05/24/16 22:16) Home Medications: Furosemide 1 tab PO BID 05/24/16 Hydralazine HCl 1 tab PO TID 05/24/16 Isosorbide Mononitrate [Isosorbide Mononitrate ER] 1 tab PO DAILY 05/24/16 Potassium Chloride [Klor-Con M20] 1 tab PO DAILY 05/24/16 Potassium Oral Tab [Klor-Con 10 mEq Tab*] 1 tab PO DAILY 05/24/16 Sacubitril/Valsartan [Entresto 49 mg-51 mg Tablet] 2 tab PO BID 05/24/16 carvediloL [Coreg*] 1 tab PO BID 05/24/16 - Past Medical/Surgical History Diabetic: No -: Hypertension -: Chronic systolic congestive heart failure -: Pacemaker defibrillator -: CVA -: PEG tube placement -: Pacemaker defibrillator Psychosocial/ Personal History: Patient currently lives at home with his daughter who is the power of finance attorney and she cares for him personally. - Family History Family History: Reviewed- Non-Contributory - Social History Smoking Status: Unknown if ever smoked Alcohol use: Yes CD- Drugs: No Caffeine use: Yes Place of Residence: Home Review of Systems is unable to be obtained Physical Examination - Physical Exam General: Other (Patient's eyes are open, response to basic commands but will not speak.) HEENT: Atraumatic, Normocephalic, PERRLA, Mucous membr. moist/pink (Mucous membranes dry) Neck: Supple Respiratory: Clear to auscultation bilaterally, Normal air movement Cardiovascular: No edema, Normal S1 S2 Capillary refill: <2 Seconds Gastrointestinal: Normal bowel sounds, Soft and benign Musculoskeletal: No swelling, No contractures, No erythema Integumentary: No tenderness/swelling, No erythema, No warmth Neurological: Other (Status post CVA, patient is awake, looking around the room, no purposeful movements noted.) - Studies Laboratory Data (last 24 hrs) 12/11/19 12:55: PT 16.3 H, INR 1.39, APTT 43.3 H 12/11/19 12:55: WBC 13.8 H, Hgb 11.6 L, Hct 37.3 L, Plt Count 112 L 12/11/19 12:55: Sodium 160 H, Potassium 4.4, BUN 234 H, Creatinine 16.00 H*, Glucose 117 H, Total Bilirubin 0.5, AST 32, ALT 27, Alkaline Phosphatase 112, Amylase 242 H*, Lipase 632 H Assessment and Plan - Plan Assessment Acute renal failure with metabolic acidosis and uremia complicated by hypotension requiring vasopressor therapy Hypernatremia likely secondary to dehydration Adult failure to thrive Chronic systolic congestive heart failure History of CVA Hypertension Plan Acute renal failure with metabolic acidosis and uremia complicated by hypotension requiring vasopressor therapy: Continue with IV fluids D5 half NS at 125 mL/hour for the 1st 4 hr then will recent chemistry and call Nephrology for further recommendation. Patient on vasopressor therapy with Levophed. Continue to titrate as needed. Central line in place. Will continue to treat aggressively medically. Patient with poor long-term prognosis. Family still unsure about whether they would like to continue with dialysis as necessary. Will discuss further with nephrology and patient family. At this time patient is DNR/DNI. Hypernatremia likely secondary to dehydration: Continue with hydration, appreciate further input from nephrology. Adult failure to thrive: Will have patient evaluated by speech therapy as he previously had had PEG tube placed after failing swallow screen. Patient appears malnourished. Will continue with IV fluids, speech therapy consult, social work consult to determine further plan of care. Chronic systolic congestive heart failure: Will continue to monitor patient's fluid status closely. Patient with ejection fraction 31% approximately 3 years ago. Patient's troponin slightly elevated at 0.05. Will continue to monitor closely. Will trend troponins. EKG as needed. No acute EKG changes noted. History of CVA: Continue patient's home medications as appropriate. Stable condition. Hypertension: Patient currently hypotensive will hold all blood pressure medications at this time. Will continue to monitor patient's blood pressure closely. Discharge Plan: LTAC Plan to discharge in: Greater than 2 days - Advance Directives Does patient have a Living Will: No Does patient have a Durable POA for Healthcare: No - Code Status/Comfort Care Code Status Assessed: Yes (Do not attempt resuscitation) Code Status: Do Not Attempt Resuscitat Critical Care: No Time Spent Managing Pts Care (In Minutes): 55
[2019-12-11] MEDS ORDERED: D5 0.45 NS 1,000 ML IV ONE (16:56)
[2019-12-11] MEDS ORDERED: D50W 25 GM/50 ML SYRINGE/VIAL IV PRN (17:49)
[2019-12-11] MEDS: D5 0.45 NS 1,000 ML IV SCH (17:49)
[2019-12-11] MEDS ORDERED: GLUCAGON 1 MG/VIAL IV PRN (17:49)
[2019-12-11] MEDS ORDERED: ONDANSETRON 4 MG/2 ML VIAL IV PRN (17:49)
[2019-12-11 18:28] VITALS: BMI 23.8
[2019-12-11] MEDS: PIPER/TAZO/NS 2.25gm 2.25 GM/50 ML BAG IVPB SCH (19:36)
[2019-12-11 20:01] LABS: Potassium 4.1 mmol/L (3.5-5.1)
[2019-12-11 20:05] LABS: Troponin I 0.08 ng/mL (0.0-0.045)
[2019-12-11] MEDS: NOREPINEPHRINE 4 MG in D5W 250 ML IV PRN (20:40)
[2019-12-11] MEDS: HEPARIN 5000 UNIT/ML 1 ML VIAL SQ SCH (21:00)
[2019-12-11] MEDS ORDERED: HEPARIN 5000 UNIT/ML 1 ML VIAL ONE (21:22)
[2019-12-12] MEDS: PIPER/TAZO/NS 2.25gm 2.25 GM/50 ML BAG IVPB SCH ×4 (00:45→18:00)
[2019-12-12] MEDS ORDERED: D5 0.45 NS 1,000 ML IV ONE ×2 (02:13→09:21)
[2019-12-12] MEDS: D5 0.45 NS 1,000 ML IV SCH ×3 (02:15→14:00)
[2019-12-12] MEDS ORDERED: NA CHLORIDE 0.9% 100 ML IV ONE ×2 (05:23→12:49)
[2019-12-12] MEDS ORDERED: PIPERACIL/TAZO 4.5 GM VIAL IV ONE (05:23)
[2019-12-12 06:02] LABS: Absolute Lymphocytes (CBC) 0.6 K/uL (0.7-4.9); Basophils % 0.2 % (0-1.3); Hematocrit 31.4 % (39.6-49.0); MPV 14.3 fL (7.6-11.3); RBC Red Blood Cell Count 3.42 M/uL (4.33-5.43)
[2019-12-12] MEDS: NOREPINEPHRINE 4 MG in D5W 250 ML IV PRN ×2 (06:02→20:30)
[2019-12-12] MEDS ORDERED: NOREPINEPHRINE 4mg/D5W 250mL 4 MG/250 ML BAG IV ONE ×3 (06:29→19:47)
[2019-12-12 06:37] LABS: Magnesium 3.3 mg/dL (1.8-2.4); Potassium 3.9 mmol/L (3.5-5.1); Thyroid Stimulating Hormone 1.34 uIU/mL (0.360-3.740)
[2019-12-12 06:55] LABS: Platelet Estimate DECR; Urine White Blood Cell Casts OK
[2019-12-12 06:56] LABS: Blood Morphology Comment NOT SEEN (NOT SEEN); Platelets, Giant NOTED
--- NOTE | 2019-12-12 08:33 | P.PN ---
Subjective Date of Service: 12/12/19 Primary Care Provider: Dr. Lynch Chief Complaint: Acute renal failure Review of Systems is unable to be obtained Physical Examination - Vital Signs Temperature: 97 F Blood Pressure: 90/59 Pulse: 80 Respirations: 18 Pulse Ox (%): 100 - Physical Exam General: Other (Eyes open, looks around room, nonverbal) HEENT: Atraumatic, Normocephalic Neck: Supple Respiratory: Diminished (YOHANNES) Cardiovascular: No edema, Normal S1 S2 Capillary refill: <2 Seconds Gastrointestinal: Hypoactive, Soft and benign Musculoskeletal: No erythema, No tenderness, No warmth Integumentary: No significant lesion, No tenderness/swelling Neurological: Other (HX CVA, nonverbal at this time, looking around room, follows some simple commands) - Studies Laboratory Data (last 24 hrs) 12/11/19 12:55: PT 16.3 H, INR 1.39, APTT 43.3 H 12/11/19 12:55: WBC 13.8 H, Hgb 11.6 L, Hct 37.3 L, Plt Count 112 L 12/11/19 12:55: Sodium 160 H, Potassium 4.4, BUN 234 H, Creatinine 16.00 H*, Glucose 117 H, Total Bilirubin 0.5, AST 32, ALT 27, Alkaline Phosphatase 112, Amylase 242 H*, Lipase 632 H Assessment & Plan Discharge Plan: LTAC Plan to discharge in: 48 Hours - Code Status/Comfort Care Code Status Assessed: Yes Physician Review Additional Text: Assessment Acute renal failure with metabolic acidosis and uremia complicated by hypotension requiring vasopressor therapy Hypernatremia likely secondary to dehydration Adult failure to thrive Chronic systolic congestive heart failure History of CVA Hypertension Plan Acute renal failure with metabolic acidosis and uremia complicated by hypotension requiring vasopressor therapy: Patient renal function with slight improvement, bladder scan now showing about 150ml. Zepeda catheter was ordered bu nursing staff unable to place after multiple attempts. Will discuss with nephrology and attempt to have local urologist assist in placement if available as urology is not vice president corporate communications. Patient likely to require dialysis is family is amendable. Will discuss further with nephrology, family, urology. Hypernatremia likely secondary to dehydration: Sodium with slight improvement with hydration. Continue with plan as above, appreciate further input from nephrology. Adult failure to thrive: Will have patient evaluated by speech therapy as he previously had had PEG tube placed after failing swallow screen. Patient appears malnourished. Will continue with IV fluids, speech therapy consult, social work consult to determine further plan of care. Chronic systolic congestive heart failure: Will continue to monitor patient's fluid status closely. Patient with ejection fraction 31% approximately 3 years ago. Patient's troponin elevated today at around 0.3. Will continue to monitor closely. EKG as needed. No acute EKG changes noted. Cardiology consult to be placed. History of CVA: Continue patient's home medications as appropriate. Stable condition. Hypertension: Patient currently hypotensive will hold all blood pressure medications at this time. Will continue to monitor patient's blood pressure closely. Critical Care: No Time Spent Managing Pts Care (In Minutes): 55
[2019-12-12] MEDS: HEPARIN 5000 UNIT/ML 1 ML VIAL SQ SCH ×2 (09:00→21:00)
[2019-12-12] MEDS ORDERED: HEPARIN 5000 UNIT/ML 1 ML VIAL ONE ×2 (09:21→12:48)
[2019-12-12] MEDS ORDERED: D5 0.45 NS 1,000 ML IV SCH (10:48)
--- NOTE | 2019-12-12 11:54 | RAD REPORT ---
EXAM DESCRIPTION: RAD - Chest Single View - 12/12/2019 9:27 am CLINICAL HISTORY: volume status Chest pain. COMPARISON: Chest Single View dated 12/11/2019; Chest Single View dated 10/20/2019; Chest Single View d ated 05/26/2016; Chest Single View dated 05/24/2016 FINDINGS: Portable technique limits examination quality. Mild to moderate bilateral pulmonary opacities are present compatible with pulmonary edema. Bilateral pleural effusions are suspected. The heart is upper limit normal in size. Multi lead pacer/defibrill ator device is present. IMPRESSION: Mild to moderate CHF versus volume overload pattern.
--- NOTE | 2019-12-12 11:56 | RAD REPORT ---
EXAM DESCRIPTION: US - Renal Ultrasound-Complete - 12/12/2019 8:24 am CLINICAL HISTORY: arf Flank pain COMPARISON: Renal Ultrasound-Complete dated 05/25/2016 FINDINGS: The right kidney is echogenic. The left kidney appears normal in echogenicity. The right kidney measures 8.3 x 4.7 x 4.1 cm. No hydronephrosis, focal mass or perinephric fluid. The left kidney measures 7.8 x 3.7 x 3.1 cm. No hydronephrosis, focal mass or perinephric fluid. The urinary bladder is incompletely distended without gross abnormality seen. IMPRESSION: Echogenic right kidney suggests medical renal disease.
[2019-12-12] MEDS ORDERED: LIDOCAINE 2% MPF 5 ML VIAL ONE (12:35)
[2019-12-12] MEDS ORDERED: propofoL 200 MG/20 ML VIAL IV ONE (12:35)
[2019-12-12] MEDS ORDERED: EPHEDRINE SULF 50 MG/ML VIAL ONE (12:36)
[2019-12-12] MEDS ORDERED: NA CHLORIDE 0.9% 500 ML ONE (12:45)
[2019-12-12] MEDS ORDERED: NS 0.9% VIAL 10 ML ONE (12:49)
[2019-12-12] MEDS ORDERED: LIDOCAINE 1% MPF 30 ML VIAL ONE (12:49)
--- NOTE | 2019-12-12 13:22 | P.OP ---
Games Dealer: NONE,NONE Preoperative diagnosis: ARF Postoperative diagnosis: Same Primary procedure: KENDAL Marshall, Fluoroscopy Anesthesia: MAC Estimated blood loss: min Specimen: none Findings: Normal Anatomy Complications: None Transferred to: Recovery Room Condition: Good
--- NOTE | 2019-12-12 13:53 | RAD REPORT ---
EXAM DESCRIPTION: RAD - Chest Single View - 12/12/2019 1:48 pm CLINICAL HISTORY: S/P Tesio Chest pain. COMPARISON: Abdomen Pelvis Wo Contrast dated 11/27/2018Chest Single View dated 12/12/2019; Chest Sing le View dated 12/11/2019; Chest Single View dated 10/20/2019; Chest Single View dated 05/26/2016 FINDINGS: Portable technique limits examination quality. Right-sided venous catheter has been placed with tip at the SVC/ right atrium junction. No postproced ure pneumothorax seen. IMPRESSION: No postprocedure pneumothorax.
--- NOTE | 2019-12-12 14:15 | RAD REPORT ---
EXAM DESCRIPTION: RAD - Fluoroscopy <1 Hour - 12/12/2019 2:05 pm CLINICAL HISTORY: Venous catheter insertion. OR [address] BRAUN COMPARISON: No comparisons FINDINGS: Fluoroscopic imaging is submitted from placement of a venous catheter. Details of the pro cedure not available. Fluoroscopy time: 0.1 minutes.
[2019-12-12] MEDS ORDERED: NOREPINEPHRINE 4 MG/4 ML VIAL ONE (15:15)
[2019-12-12] MEDS ORDERED: D5W 250 ML IV ONE (15:15)
--- NOTE | 2019-12-12 17:40 | CON ---
Date of Consultation: 12/12/2019 Reason For Consultation: Elevated BUN and creatinine, electrolyte imbalance, acidosis. History Of Present Illness: All the information has been obtained from the record as the patient is confused. This is a 59-year-old black gentleman with significant past medical history of congestive heart failure, status post AICD, ejection fraction around 25; CVA; hypertension; hyperlipidemia. Patient apparently lost his . Since then, he is declining, poor intake. Patient then start having altered mental status. For that reason, brought to the hospital. Upon arrival to the hospital, patient was hypothermic with septic shock. Blood pressure down to the 70s. Primary workup showed creatinine 16, BUN 234. For that reason, we have been consulted. There is no mention of taking any nonsteroidals. Patient apparently on Entresto and diuresis for his congestive heart failure. Over the night, Zepeda could not be inserted. Patient was started on aggressive hydration, received almost 3.5 L. Patient is anuric, even on the bladder scan. Labs show, as I mentioned, elevation in BUN and creatinine with acidosis. Patient continued to require pressors to support the blood pressure. Home Medications: Lasix, hydralazine, isosorbide, KCl, Entresto, carvedilol. Allergies: NO KNOWN DRUG ALLERGIES. Past Medical History: 1. Hypertension. 2. Congestive heart failure, ejection fraction 20 to 25, status post ICD. 3. CVA. 4. PEG tube placement and removal. 5. ICD placement. 6. Chronic kidney disease, baseline creatinine 2.2. GFR of 36 back in October 2019. Past Surgical History: 1. ICD placement. 2. PEG tube placement and removal. Family History: Positive for hypertension. Social History: None obtainable. Review of Systems: None obtainable. Physical Examination: Vital Signs: When I saw the patient, blood pressure 90/48, pulse of 94, afebrile. Again, patient anuric. Chest: Crackles bilateral. Heart: S1, S2. Systolic murmur. Abdomen: Soft, nontender. Extremities: No edema. Neurologic: The patient is sleepy. Pupils reactive. Laboratory Data: WBC 12.6, H and H 10/31.4, platelets of 71. Chest x-ray: Cardiomegaly with congestion, bilateral. Sodium 155, potassium 3.9, bicarb 21, chloride 120, BUN 220, creatinine 14.6, calcium 8, magnesium 3.3. Cardiac enzyme was negative. TSH 1.3. Cortisol still pending. Urinalysis none obtainable. Current Medications: The patient is on Levophed, Zosyn, and Zofran. Assessment And Plan: 1. Acute kidney injury on advanced chronic kidney disease, anuric, multifactorial, secondary to poor perfusion, ATN on chronic kidney disease secondary to cardiorenal. I can go ahead and continue hydration. We will decrease IV fluid to 75 per hour and we will follow up. Patient is going to need to be initiated on renal replacement therapy. We will arrange for PermCath placement today, then we will do dialysis today and tomorrow. We will do dialysis on low blood flow to avoid any disequilibrium. We are not going to take any fluid for the time being, given the cardiac problem and the severe dehydration and patient is still on room air. Patient also is going to be dialyzed on sodium module with low temperature to avoid low blood pressure. 2. Hypernatremia. Going to continue hydration. Going to be corrected with dialysis. I going to avoid significant clearance on the dialysis, given the hypernatremia to avoid any disequblirum syn/ Demelinazation 2nd to fast drop on the sodium / Bun as patient is going to be dialyzed on high-sodium bath. 3. Acidosis secondary to renal failure. High anion gap with contraction alkalosis. Continue hydration. We will follow up. The patient is going to be corrected with dialysis. 4. Congestive heart failure. Hold diuresis. We will monitor the patient. 5. Uremic encephalopathy. As above, we will follow up after dialysis. KRISTAN Voice ID: [id number] Report ID: [id number] CHAITANYA
--- NOTE | 2019-12-12 18:31 | PREOPCON ---
Date of Consultation: 12/12/2019 Reason: Patient needs emergent dialysis. History Of Present Illness: Patient is a 59-year-old gentleman with multiple medical problems, who w as admitted yesterday with mental status changes, failure to thrive. Patient's history is significan t for recent passing of his spouse and since that time, he has refused to eat or take any medication and he debilitated, he became worse and worse where the family could not take care of him at home, br ought him to the emergency room. He was found to be hypotensive, acute renal failure. Patient has b een started on vasopressors and requires urgent dialysis. I was consulted. Patient is awake but he is really not responsive to verbal command. He is in no acute distress. No fever or chills at this time. Review of Systems: Otherwise unremarkable. Past Medical History: Significant for hypertension, chronic congestive heart failure, prior stroke. Past Surgical History: Significant for pacemaker, PEG. Allergies: NONE. Social History: Patient does drink alcohol. Unknown whether he smokes or not. Family History: Noncontributory. Physical Examination: VITAL SIGNS: Significant for blood pressure of 89/58, on pressors. He is afebrile. Heart rate is 9 7. Respiratory rate is 25. GENERAL: He is awake, confused. HEAD AND NECK: No masses. CHEST: Clear. HEART: S1, S2. ABDOMEN: Soft. EXTREMITIES: Neurovascularly Intact. NEURO: Nonfocal. Laboratory Data: White count is 12.6 with a left shift. H and H are 10 and 31.4. Platelets are 71 this morning. INR is 1.39. Blood gas reviewed. Chemistry; BUN is 320, creatinine is 14.6, CO2 is 2 1, potassium is 3.9. Assessment: A 59-year-old gentleman with multiple medical problems, in acute renal failure, extremis in the sense of low blood pressure. Recommendations: We will go ahead and place a dialysis catheter, Tesio, under local anesthesia with sedation. Risks, benefits, and alternatives were explained to the patient's daughter. She understoo d and agreed. /MODL Voice ID: [id number] Report ID: [id number]
--- NOTE | 2019-12-12 22:40 | OP ---
Date of Procedure: 12/12/2019 Surgeon: Huang Rushing MD Poultry Grader: None. Preoperative Diagnosis: Acute renal failure. Postoperative Diagnosis: Acute renal failure. Procedure: Right internal jugular Tesio catheter placement and interpretation of intraoperative fluo roscopy. Findings: Normal anatomy. Specimens: None. Anesthesia: MAC. Complications: None. Disposition: The patient tolerated the procedure in stable condition, taken to Recovery in good gene ral condition. Procedure In Detail: The patient was brought to the OR and placed in supine position. MAC anesthesi a begun. The patient was prepped and draped in usual sterile fashion. Lidocaine 1% infiltrated loca lly. An 18-gauge needle was used to access the right IJ vein. Guidewire was passed. Position was c onfirmed with fluoroscopy and a counterincision made in the right anterior chest. Tunneling device w as used to tunnel between the 2 wounds. Seldinger technique was used and tip of the catheter was viki franc in the SVC under fluoroscopy and catheter flushed with heparin and packed with heparin with good blood flow and subsequently 3-0 chromic used to approximate the subcutaneous tissue and 3-0 nylon use d to secure the tube to the chest wall. Sterile dressing was applied. The patient was awakened and taken to Recovery in good general conditi on. Chest x-ray has been ordered. /MODL Voice ID: [id number] Report ID: [id number]
[2019-12-13] MEDS ORDERED: HEPARIN 5000 UNIT/ML 1 ML VIAL ONE ×2 (00:03→21:40)
[2019-12-13] MEDS: D5 0.45 NS 1,000 ML IV SCH ×2 (03:20→17:55)
[2019-12-13] MEDS ORDERED: D5W 250 ML IV ONE (03:22)
[2019-12-13] MEDS ORDERED: NOREPINEPHRINE 4 MG/4 ML VIAL ONE (03:22)
[2019-12-13] MEDS: NOREPINEPHRINE 4 MG in D5W 250 ML IV PRN (04:45)
[2019-12-13 04:59] LABS: Absolute Lymphocytes (CBC) 0.6 K/uL (0.7-4.9); Basophils % 0.2 % (0-1.3); Hematocrit 33.8 % (39.6-49.0); Lymphocytes % 4.4 % (15.3-44.8); MPV 14.6 fL (7.6-11.3); RBC Red Blood Cell Count 3.69 M/uL (4.33-5.43)
[2019-12-13] MEDS ORDERED: D5 0.45 NS 1,000 ML IV ONE ×2 (05:02→18:21)
[2019-12-13] MEDS: PIPER/TAZO/NS 2.25gm 2.25 GM/50 ML BAG IVPB SCH ×5 (06:00→21:00)
[2019-12-13 08:02] LABS: Albumin 2.2 g/dL (3.4-5.0); BUN Blood Urea Nitrogen 113 mg/dL (7-18); Bicarbonate 23 mmol/L (21-32); Ferritin 840.6 ng/mL (26-388); Folic Acid, (Folate) 4.1 ng/mL (3.1-17.5); Glucose Level 136 mg/dL (74-106); Magnesium 2.4 mg/dL (1.8-2.4); Phosphorus 3.1 mg/dL (2.5-4.9); Sodium Level 150 mmol/L (136-145); Transferrin 150 mg/dL (200-360)
[2019-12-13] MEDS: HEPARIN 5000 UNIT/ML 1 ML VIAL SQ SCH ×2 (14:30→21:00)
[2019-12-13] MEDS ORDERED: HYDROCORTISONE SUC 100 MG INJ IV ONE (14:41)
[2019-12-13] MEDS: MIDODRINE HCL 5 MG TABLET PO SCH (21:00)
[2019-12-13] MEDS: HYDROCORTISONE SUC 100 MG INJ IV SCH (21:00)
[2019-12-13] MEDS ORDERED: HYDROCORTISONE SUC 100 MG INJ ONE (21:39)
[2019-12-13] MEDS ORDERED: PANTOPRAZOLE 40 MG INJ IVP ONE (23:16)
[2019-12-14] MEDS: D5 0.45 NS 1,000 ML IV SCH ×2 (00:23→06:00)
[2019-12-14] MEDS: SODIUM CHLORIDE 0.9% 10ML INJ IV PRN ×4 (00:24→21:10)
--- NOTE | 2019-12-14 02:18 | PN ---
Date of Progress Note: 12/13/2019 Chief Complaint: Acute kidney injury, severe. Subjective: The patient was found to have severe hyperazotemia and was started on dialysis. He has oliguric urine output and was found to have acidosis, severe hyperazotemia. He had temporary dialysis catheter placed. The patient is 59-year-old black gentleman with significant past medical history of congestive heart failure, status post AICD, ejection fraction 25%, CVA, hypertension, hyperlipidemia. He has been declining in his stamina and generalized health over the last several weeks. He was brought to the hospital because of hypothermia and he was found to have septic shock. The systolic blood pressure was down to 70s. BUN is 234 and creatinine 16. The patient apparently was taking Entresto and diuretics for congestive heart failure prior to this admission. Aggressive hydration, volume resuscitation was started for septic shock. The patient is anuric and bladder scan was done. Review of Systems: Unobtainable. Physical Examination: Lungs: Diminished breath sounds at bases. Heart: S1, S2. Abdomen: Soft, benign. Extremities: No edema. Laboratory Data: Creatinine 14.6, BUN 220, chloride 120, sodium 155, potassium 3.9, bicarbonate 21, magnesium 3.3. Impression And Plan: 1. [id number] kidney injury. The patient likely has advanced chronic kidney disease and is oliguric and anuric. The patient has acute tubular necrosis with cardiorenal syndrome. The patient will continue dialysis. He received IV fluids for volume resuscitation and septic shock treatment. 2. Hypernatremia. The patient received dialysis. Monitor sodium level and adjust treatment with dialysis and hydration with IV fluids as needed. 3. Acidosis secondary to renal failure. The patient received dialysis. Re- evaluate lab work. 4. Congestive heart failure. Hold diuretics. 5. Uremic encephalopathy. The patient will start dialysis. Monitor closely. The patient may need neuro workup as well. I spent total 36 min including 25 min to coordinate care plan. SHOBHA/MALI Voice ID: [id number] Report ID: [id number] CHAITANYA
[2019-12-14] MEDS: PIPER/TAZO/NS 2.25gm 2.25 GM/50 ML BAG IVPB SCH ×4 (03:00→21:08)
[2019-12-14 04:25] LABS: Absolute Lymphocytes (CBC) 0.4 K/uL (0.7-4.9); Basophils % 0.1 % (0-1.3); Hematocrit 28.4 % (39.6-49.0); Lymphocytes % 3.4 % (15.3-44.8); MPV 13.2 fL (7.6-11.3); RBC Red Blood Cell Count 3.14 M/uL (4.33-5.43)
[2019-12-14 04:29] LABS: Protime INR 1.57
[2019-12-14 05:07] LABS: Blood Morphology Comment NOTED (NOT SEEN); Ovalocytes 2+; Platelet Estimate DECR
[2019-12-14 05:09] LABS: Albumin 1.7 g/dL (3.4-5.0); Magnesium 2.1 mg/dL (1.8-2.4); Phosphorus 5.3 mg/dL (2.5-4.9); Potassium 3.2 mmol/L (3.5-5.1)
[2019-12-14] MEDS: PANTOPRAZOLE 40 MG INJ IVP SCH ×3 (05:46→21:09)
[2019-12-14] MEDS: KCL 20 MEQ/100 mL IVPB 20 MEQ/100 ML BAG IV SCH ×2 (05:47→08:09)
[2019-12-14] MEDS: MIDODRINE HCL 5 MG TABLET PO SCH ×3 (07:59→21:00)
[2019-12-14] MEDS: HYDROCORTISONE SUC 100 MG INJ IV SCH ×2 (08:09→21:09)
--- NOTE | 2019-12-14 10:47 | P.PN ---
Date of Service: 12/13/19 Subjective Spoke with family. Decision was to place a PEG tube. Spoke with family and will get GI consultation. Patient is not able to make decisions for himself because he suffered a severe stroke which left him with complete paralysis. Patient is also aphasic. Patient was started on hemodialysis and clinically according to the nursing staff he seems a little more awake and alert. He was not opening his eyes before but he is now. Nutritional status is also very poor. Continue with current plan of care with feeding tube and then once this is done possible discharge once outpatient hemodialysis is arranged. Review of Systems is unable to be obtained Physical Examination - Vital Signs reviewed - Physical Exam General: Other (Eyes open, looks around room, nonverbal) Respiratory: Decreased bibasilar Cardiovascular: No edema, Normal S1 S2 Gastrointestinal: Hypoactive, Soft and benign Musculoskeletal: No erythema, No tenderness, No warmth Neurological: aphasic; does not follow commands; contractures Assessment & Plan Assessment 1. Acute renal failure with metabolic acidosis and uremia complicated by hypotension requiring vasopressor therapy 2. Hypernatremia likely secondary to dehydration 3. Adult failure to thrive 4. Chronic systolic congestive heart failure 5. History of CVA 6. Hypertension Plan 1. Continue hemodialysis per poker in 2. Dehydration correcting; monitor sodium level closely 3. Spoke with family and we will be doing PEG tube feeds 4. Monitor volume status closely 5. We will continue supportive care for stroke management 6. Strict blood pressure control Critical Care: Yes Time Spent Managing Pts Care (In Minutes): 45
[2019-12-14 11:51] LABS: Rheumatoid Factor NEG (NEG)
--- NOTE | 2019-12-14 14:30 | RAD REPORT ---
EXAM DESCRIPTION: CT - Chest Abd Pelvis Wo Con - 12/14/2019 2:17 pm CLINICAL HISTORY: Chest and abdomen pain. Evaluate cirrhosis, ascites, abdominal varices COMPARISON: Thorax Wo Con dated 05/24/2016; Chest Single View dated 12/12/2019; Renal Ultrasound-Comple te dated 12/12/2019 TECHNIQUE: A limited noncontrast study was performed. All CT scans are performed using dose optimization technique as appropriate and may include automated exposure control or mA/KV adjustment according to patient size. FINDINGS: Airspace opacity is present in the left lung base as well as the right upper lobe and a sm all amount in the posterior left upper lobe compatible with pneumonia.Pacemaker wires are present.Tra ce right pleural fluid.No intrathoracic adenopathy. The liver demonstrates no focal mass or biliary dilatation. No real evidence of cirrhotic liver vargas es. The spleen, pancreas, adrenal glands and kidneys are within normal limits for noncontrast study. No bowel obstruction, free air, free fluid or abscess. Normal appendix. No significant ascites. Mild ectatic changes of the aortoiliac segment with mild atherosclerosis. No pathologic lymphadenopathy in the abdomen or pelvis. No worrisome osseous finding. IMPRESSION: Multifocal pneumonia pattern is suspected. No convincing evidence of liver cirrhosis.
--- NOTE | 2019-12-14 19:23 | PN ---
Date of Progress Note: 12/14/2019 Subjective: The patient was admitted with acute kidney injury on advanced chronic kidney disease. T he patient has been anuric. The patient had severe uremic symptoms. The patient was started on dial ysis. The patient still anuric. The patient has some shortness of breath. Physical Examination: VITAL SIGNS: Blood pressure 141/82, pulse of 82, afebrile. The patient had dialysis today. CHEST: Crackles bilateral. HEART: S1, S2. Systolic murmur. ABDOMEN: Soft, nontender. EXTREMITIES: Trace edema. NEURO: The patient not following command. Laboratory Data: WBC 11.1, H and H 9/28.4, platelets 47. Sodium 148, potassium 3.2, bicarb 23. BUN 105, creatinine 8.1, calcium 7.9, phosphorus 5.3, magnesium 2.1. Iron saturation 45. Albumin 1.6. Serology still pending. Current Medications: The patient on include; 1.Zosyn. 2.Midodrine. 3.Pantoprazole. 4.Hydrocortisone. Assessment And Plan: 1.Acute kidney injury on advanced chronic kidney disease secondary to prerenal superimposed with ARB and over diuresis, still oliguric to anuric, looked to me to be over volume. I am going to go ahead and continue on the dialysis. We will arrange for another session of dialysis tomorrow. We will tr y to remove fluid to establish better volume control and we will follow up. 2.Hypernatremia depletional, recover. 3.Hypokalemia. The patient is going to be dialyzed on high potassium bath. We will hold on the sup plement. 4.Altered mental status secondary to uremia. We will continue daily dialysis. 5.Secondary hyperparathyroidism. Start the patient on calcitriol. 6.Anemia of chronic kidney disease. We will start JOEL. 7.Congestive heart failure. We will try to establish better volume control with the dialysis. PONCHO/MALI Voice ID: [id number] Report ID: [id number]
--- NOTE | 2019-12-14 22:21 | PN ---
Date of Progress Note: 12/14/2019 Mr. Salas is a do not resuscitate gentleman. He has had renal failure. He is on dialysis now. He ca me in hyponatremic, uremic, and congestive heart failure. He has a history of CVA, AICD and PEG tubi ng. He has a paced rhythm. Has improved after dialysis. His last creatinine was 8.18. His last pl atelet count was 47. His blood pressure today is 141/82. Again, Mr. Salas is a do not resuscitate. There is really no indication at this point for any invasive cardiac workup. I think he needs to be dialyzed. Continue his other regimen. Continue renal followup and renal treatment. I will sign off his case. I will be available if the need arise, especially if he develops any arrhythmias. NB/MODL Voice ID: [id number] Report ID: [id number]
[2019-12-15] MEDS: PIPER/TAZO/NS 2.25gm 2.25 GM/50 ML BAG IVPB SCH ×4 (02:15→20:23)
[2019-12-15 05:23] LABS: Absolute Lymphocytes (CBC) 0.3 K/uL (0.7-4.9); Hematocrit 29.6 % (39.6-49.0); Lymphocytes % 3.2 % (15.3-44.8); MPV 14.7 fL (7.6-11.3); RBC Red Blood Cell Count 3.26 M/uL (4.33-5.43)
[2019-12-15 06:14] LABS: Albumin 1.8 g/dL (3.4-5.0); Magnesium 2.2 mg/dL (1.8-2.4); Potassium 3.5 mmol/L (3.5-5.1)
--- NOTE | 2019-12-15 08:50 | P.PN ---
Date of Service: 12/14/19 Subjective Spoke with Gastroenterology and patient is thrombocytopenic. They want this to be corrected before the put a PEG tube. Also this evening patient's COVID-19 testing came back positive. Patient will be moved to the [facility] [place] [id number] intensive care unit for closer monitoring. Will speak to family regarding his testing to them aware Review of Systems is unable to be obtained Physical Examination - Vital Signs reviewed - Physical Exam General: Other (Eyes open, looks around room, nonverbal); cachexia Respiratory: Decreased bibasilar breath sounds Cardiovascular: No edema, Normal S1 S2 Gastrointestinal: Hypoactive, Soft and benign Musculoskeletal: No erythema, No tenderness, No warmth Neurological: aphasic; does not follow commands; contractures Skin: Dry Assessment & Plan Assessment 1. Acute renal failure with metabolic acidosis and uremia complicated by hypotension requiring vasopressor therapy 2. Hypernatremia likely secondary to dehydration 3. Adult failure to thrive 4. Chronic systolic congestive heart failure 5. History of CVA 6. Hypertension Plan 1. Continue hemodialysis per weekend anchor 2. Sodium level is stable 3. Spoke with family and we will be doing PEG tube placement once thrombocytopenia is corrected; spoke to Gastroenterology and I want to make sure platelet counts increases prior to the PEG tube. Once greater than 50,000 then will go ahead and proceed with PEG tube. COVID-19 testing is also positive. 4. Monitor volume status closely 5. We will continue supportive care for stroke management 6. Strict blood pressure control Critical Care: Yes Time Spent Managing Pts Care (In Minutes): 45
[2019-12-15] MEDS: HYDROCORTISONE SUC 100 MG INJ IV SCH ×2 (08:53→20:22)
[2019-12-15] MEDS: PANTOPRAZOLE 40 MG INJ IVP SCH ×2 (08:53→20:22)
[2019-12-15] MEDS: MIDODRINE HCL 5 MG TABLET PO SCH ×2 (08:53→14:00)
--- NOTE | 2019-12-15 08:53 | P.PN ---
Date of Service: 12/15/19 Subjective need to plan to do PEG tube when anesthesiology and Gastroenterology are agreeable. Patient caloric intake is very minimal. He will not be able to meet his caloric intake requirements. Family does not want us proceed with hospice at this time. They have made him a DNR. Will need to coordinate this with same-day surgery as patient is COVID-19 positive. Review of Systems is unable to be obtained Physical Examination - Vital Signs reviewed - Physical Exam General: Other (Eyes open, looks around room, nonverbal); cachexia Respiratory: Decreased bibasilar breath sounds Cardiovascular: No edema, Normal S1 S2 Gastrointestinal: Hypoactive, Soft and benign Musculoskeletal: No erythema, No tenderness, No warmth Neurological: aphasic; does not follow commands; contractures Skin: Dry Assessment & Plan Assessment 1. Acute renal failure with metabolic acidosis and uremia complicated by hypotension requiring vasopressor therapy 2. Hypernatremia likely secondary to dehydration 3. Adult failure to thrive 4. Chronic systolic congestive heart failure 5. History of CVA 6. Hypertension Plan Continue with plan of care as mentioned below 1. Continue hemodialysis per lion tamer 2. Sodium level is stable-in the 140s 3. Peg tube placement whenever same-day surgery can coordinate; monitor respiratory status 4. Monitor volume status closely 5. We will continue supportive care for stroke management 6. Strict blood pressure control Critical Care: Yes Time Spent Managing Pts Care (In Minutes): 45
[2019-12-15] MEDS ORDERED: VANCOMYCIN/NS 1 gm 1 GM/250 ML BAG IVPB SCH ×2 (10:30→11:00)
--- NOTE | 2019-12-15 14:01 | PN ---
Date of Progress Note: 12/15/2019 Subjective: The patient was admitted with severe uremic symptoms. Patient had COVID pneumonia, severe hypernatremia. Patient was started on dialysis. Patient received daily dialysis up to yesterday. The patient today more awake, following simple command, was transferred to ICU because of COVID pneumonia. Blood pressure still stable. Patient is still anuric. Objective: Vital Signs: Blood pressure 122/82, pulse of 78, afebrile. Chest: Crackles, more prominent left-sided. Heart: S1, S2. Systolic murmur. Abdomen: Soft, nontender. Extremities: No edema. Laboratory Data: WBC 10.8, H and H 9.5/29.6, platelets of 65. Sodium 146, potassium 3.5, bicarb 25, BUN 64, creatinine of 6, GFR of 12, calcium 8.2, phosphorus 5, magnesium of 2.2, albumin 1.8. Serum protein electrophoresis is still pending. PTH is 340, iron saturation of 45. Serology still pending. Current Medications: The patient on include, 1. Zosyn. 2. Midodrine 10 t.i.d. 3. Zofran. 4. Hydrocortisone 50 b.i.d. Assessment And Plan: 1. Acute kidney injury on advanced chronic kidney disease, anuric, cleared for end-stage renal disease for the time being with severe uremic symptoms and hypernatremia. I going to do another session of dialysis today. Then hopefully we can switch the patient to Friday, Friday, Friday. If mental status continue to improve today, we will try to challenge the patient to establish negative fluid balance as the patient started having respiratory symptoms and we will follow up. 2. Hypertension, currently hypotension. Continue midodrine. 3. Secondary hyperparathyroidism, corrected calcium is 9.5. No need for vitamin D analog. 4. Anemia of chronic kidney disease. Continue Retacrit with dialysis. 5. Hypernatremia secondary to poor oral intake, recovered, resolved. 6. COVID pneumonia with healthcare-associated pneumonia. I am going to add vancomycin to his regimen. We will follow up with Primary and Pulmonary. 7. Respiratory failure secondary to pneumonia, questionable over volume. We will challenge on the dialysis. Time spend for patient Care face to face , ordering and discussing the plan of care with staff 35 min PONCHO/MALI Voice ID: [id number] Report ID: [id number] CHAITANYA
[2019-12-15 16:31] LABS: HIV AG/AB 4TH GEN Non-reactive (Non-reactive)
[2019-12-16] MEDS: PIPER/TAZO/NS 2.25gm 2.25 GM/50 ML BAG IVPB SCH ×4 (03:01→19:54)
[2019-12-16 05:34] LABS: Albumin 2.1 g/dL (3.4-5.0); Phosphorus 3.8 mg/dL (2.5-4.9); Potassium 3.5 mmol/L (3.5-5.1)
[2019-12-16] MEDS: PANTOPRAZOLE 40 MG INJ IVP SCH ×2 (08:00→19:53)
[2019-12-16] MEDS: HYDROCORTISONE SUC 100 MG INJ IV SCH ×2 (08:01→19:53)
[2019-12-16] MEDS: EPOETIN 4,000 UNIT/ML VIAL IV SCH (12:12)
[2019-12-16 14:05] LABS: Hepatitis C Virus RNA (PCR)log <1.18 log IU/mL
--- NOTE | 2019-12-16 16:19 | PN ---
Date of Progress Note: 12/16/2019 Subjective: The patient was admitted with severe uremic encephalopathy with acute kidney injury on advanced chronic kidney disease. The patient used to see Dr. Marquez in the office before. The patient was initiated on renal replacement therapy. Physical Examination: Vital Signs: When I saw the patient, blood pressure 112/80, pulse of 74. The patient is still anuric. Yesterday, we had dialysis managed to remove 1400. Chest: Faint rales on the left base. Heart: S1, S2. Regular. Systolic murmur. Abdomen: Soft, nontender. Extremities: No edema. Neuro: Follows simple command. Still slurred speech. Laboratory Data: WBC 10.8, H and H 9.5/29.6, platelets 65. Sodium 142, potassium 3.5, bicarb 26, BUN 41, creatinine 4.3, calcium 8.2, phos 3.8, magnesium of 2, albumin 2.8. Current Medications: The patient on include Zosyn, vancomycin, Epogen, pantoprazole, Zofran, hydrocortisone 50 b.i.d. Assessment And Plan: 1. End-stage renal disease, anuric, used to be uremic. Currently, slightly on the wet side. I am going to continue dialysis Friday, Friday, Friday. We will arrange for hemodialysis tomorrow and we will monitor the patient. 2. Hypertension, controlled, optimal. Continue to utilize blood pressure for ultrafiltration. 3. Hypertension, controlled, optimal. Continue current medications. 4. COVID with pneumonia/healthcare-associated pneumonia. Continue current antibiotic. We will follow up with primary. 5. Deconditioning. Continue current supportive care. The patient is going to be benefit from LTAC. We will consult. Time spend for patient Care face to face , ordering and discussing the plan of care with staff 35 min KRISTAN Voice ID: [id number] Report ID: [id number] CHAITANYA
[2019-12-16 19:20] LABS: HBsAG Nonreactive (Nonreactive)
[2019-12-16 23:04] LABS: Albumin, (SPE) 2.4 g/dL (3.8-4.8); Alpha-1-Globulins 0.5 g/dL (0.2-0.3); Alpha-2-Globulins 0.8 g/dL (0.5-0.9); Gamma Globulins 1.4 g/dL (0.8-1.7); INTERPRETATION REPORT
[2019-12-17 00:02] LABS: Vitamin D 1,25-Dihydroxy Total 27 pg/mL (18-72); Vitamin D,1,25-OH2, D2 <8 pg/mL
[2019-12-17] MEDS: PIPER/TAZO/NS 2.25gm 2.25 GM/50 ML BAG IVPB SCH ×3 (03:44→15:37)
[2019-12-17 06:20] LABS: Phosphorus 6.3 mg/dL (2.5-4.9); Potassium 3.5 mmol/L (3.5-5.1)
[2019-12-17] MEDS: HYDROCORTISONE SUC 100 MG INJ IV SCH (09:00)
--- NOTE | 2019-12-17 09:34 | P.PN ---
Date of Service: 12/16/19 Subjective At this time were still planning on doing feeding tube. However, with patient being a little hypoxic we are holding off until patient's symptoms improved. Continue with current plan of care at this time. Review of Systems is unable to be obtained Physical Examination - Vital Signs reviewed - Physical Exam General: Other (Eyes open, looks around room, nonverbal); cachexia; dysphagia Respiratory: Decreased bibasilar breath sounds; rhonchi Cardiovascular: No edema, Normal S1 S2 Gastrointestinal: Hypoactive, Soft and benign Musculoskeletal: No erythema, No tenderness, No warmth Neurological: aphasic; does not follow commands; contractures Skin: Dry Assessment & Plan Assessment 1. ESRD 2. Hypernatremia 3. Adult failure to thrive with dysphagia and poor caloric intake 4. Chronic systolic congestive heart failure 5. History of CVA with complete debilitation 6. Hypertension 7. COVID-19 pneumonia Plan Continue with plan of care as mentioned below 1. Continue hemodialysis per systems analyst engineer 2. Sodium level is stable 3. Peg tube placement once patient's hypoxemia improved 4. Monitor volume status closely 5. We will continue supportive care for stroke management 6. Strict blood pressure control 7. ST evaluation 8. Continue with anti-platelet therapy 9. Continue with O2 sats as tolerated 10. GI and DVT prophylax
--- NOTE | 2019-12-17 09:35 | P.PN ---
Date of Service: 12/17/19 Subjective Patient has some upper airway congestion. Still is hypoxic and on 4 L. Continue gradually weaning off his oxygen as tolerated. Still planning on doing PEG tube feeds. Normally do not do TPN on ESRD patient's because of severe electrolyte abnormalities I cannot occur. Await Nephrology input Review of Systems is unable to be obtained Physical Examination - Vital Signs reviewed - Physical Exam General: Other (Eyes open, looks around room, nonverbal); cachexia; dysphagia Respiratory: Decreased bibasilar breath sounds; rhonchi Cardiovascular: No edema, Normal S1 S2 Gastrointestinal: Hypoactive, Soft and benign Musculoskeletal: No erythema, No tenderness, No warmth Neurological: aphasic; does not follow commands; contractures Skin: Dry Assessment & Plan Assessment 1. ESRD 2. Hypernatremia 3. Adult failure to thrive with dysphagia and poor caloric intake 4. Chronic systolic congestive heart failure 5. History of CVA with complete debilitation 6. Hypertension 7. COVID-19 pneumonia Plan Continue with plan of care as mentioned below 1. Continue hemodialysis per drafter cartographic; discuss regarding nutritional status. Do not want put Doppler office patient coughing can't could contaminate nursing staff with COVID-19 2. Sodium level is stable 3. Peg tube placement plan for Friday 4. Monitor volume status closely 5. We will continue supportive care for stroke management 6. Strict blood pressure control 7. ST evaluation appreciated 8. Continue with anti-platelet therapy 9. Continue with O2 sats as tolerated 10. GI and DVT prophylax
[2019-12-17] MEDS: PANTOPRAZOLE 40 MG INJ IVP SCH (09:43)
--- NOTE | 2019-12-17 11:52 | P.PN ---
Subjective Date of Service: 12/17/19 Primary Care Provider: Dr. Lynch Chief Complaint: Acute renal failure Physical Examination - Vital Signs Temperature: 98.6 F Blood Pressure: 136/84 Pulse: 74 Respirations: 12 Pulse Ox (%): 98 - Studies Microbiology Data (last 24 hrs): 12/11/19 12:58 Blood - Blood Aerobic Blood Culture - Final No growth in 5 days. 12/11/19 12:58 Blood - Blood Anaerobic Blood Culture - Final No growth in 5 days. Assessment And Plan - Plan Subjective pt with CKD, admitted with AMS , started on HD Pt found to have COVID 19 Today no change in clinical status BP controlled HD today failure to thrive, will monitor oral intake and consider PEG placement if no improvement Physical exam general: Alert, not oriented Neck; Supple, No elevated JVD hear: RRR, normal S1,2 no murmur or rub Chest: CTAB, no rales or wheezes Abdomen: Soft , Nt Extremities No edema or ulcer Assessment And Plan: ESRD started on HD will conot HD MWF renal dose meds CVA cont supportive care encephalopathy likely COVID and metabolic cont supportive care HTN BOp controlled COVID 19 cont O2 with weaning failure to thrive will monitor oral intake and consider PEG placement if no improvement
[2019-12-17] MEDS ORDERED: WATER FOR INJ,STERILE 10 ML ONE (21:29)
[2019-12-17] MEDS: EPOETIN 4,000 UNIT/ML VIAL IV SCH (22:15)
[2019-12-17] MEDS ORDERED: ALBUMIN HUMAN 25% 50 ML IV ONE (23:09)
[2019-12-18] MEDS: PANTOPRAZOLE 40 MG INJ IVP SCH ×3 (01:00→20:29)
[2019-12-18] MEDS: HYDROCORTISONE SUC 100 MG INJ IV SCH ×3 (01:00→20:29)
[2019-12-18] MEDS: PIPER/TAZO/NS 2.25gm 2.25 GM/50 ML BAG IVPB SCH ×5 (01:00→20:28)
[2019-12-18] MEDS: SODIUM CHLORIDE 0.9% 10ML INJ IV PRN (08:05)
[2019-12-18] MEDS: ENSURE PUDDING 4 OZ CUP PO SCH ×2 (14:00→21:00)
--- NOTE | 2019-12-18 15:43 | PN ---
Date of Progress Note: 12/18/2019 Subjective: The patient was admitted with acute kidney injury. The patient on advanced chronic kidney disease with uremic encephalopathy. The patient was started on dialysis. Physical Examination: Vital Signs: When I saw the patient, blood pressure of 151/83, pulse of 86, afebrile. Chest: Clear to auscultation. Heart: S1 and S2. Systolic murmur. Abdomen: Soft, nontender. Extremities: No edema. Neurologic: Alert. Moving 4 extremity. Confused. Response to verbal command. Laboratory Data: WBC 10.8, H and H 9.5/29.6, platelets 65. Sodium 144, potassium 3.5, bicarb 24, BUN 53, creatinine 5.9, calcium 8.2, phosphorus 6.3, magnesium 2, albumin 2. Current Medications: The patient on include Zosyn, vancomycin, Epogen, pantoprazole, Glucerna. Assessment/plan: 1. End-stage renal disease. The patient after acute kidney injury, dialysis dependent. We will continue dialysis Friday, Friday, and Friday. 2. Secondary hyperparathyroidism. Continue calcium carbonate. 3. Anemia of chronic kidney disease. Continue JOEL. 4. COVID pneumonia/hospital-acquired pneumonia. Continue antibiotic. We will follow up vancomycin trough. I am going to decrease the dosage to 75. 5. Deconditioning. Continue PT, OT. 6. Failure to thrive. To start the patient on PPN. Time spend for patient Care face to face , ordering and discussing the plan of care with staff 35 min KRISTAN Voice ID: [id number] Report ID: [id number] CHAITANYA
[2019-12-18] MEDS: AA 4.25%/D10W/ELECTROLYTES 2,000 ML, Lipids 20% 250 ML with MULTIVITAMINS INJ 10 ML IV SCH ×3 (17:45)
[2019-12-18 18:17] LABS: Phosphorus 4.3 mg/dL (2.5-4.9); Potassium 3.5 mmol/L (3.5-5.1)
[2019-12-18 18:28] LABS: Absolute Lymphocytes (CBC) 0.8 K/uL (0.7-4.9); Basophils % 0.1 % (0-1.3); Hematocrit 27.3 % (39.6-49.0); Lymphocytes % 7.1 % (15.3-44.8); MPV 12.4 fL (7.6-11.3); RBC Red Blood Cell Count 2.99 M/uL (4.33-5.43)
[2019-12-19] MEDS: PIPER/TAZO/NS 2.25gm 2.25 GM/50 ML BAG IVPB SCH ×4 (01:02→19:49)
[2019-12-19 06:12] LABS: Potassium 3.2 mmol/L (3.5-5.1)
[2019-12-19] MEDS: PANTOPRAZOLE 40 MG INJ IVP SCH ×2 (08:29→19:49)
[2019-12-19] MEDS: ENSURE PUDDING 4 OZ CUP PO SCH ×3 (08:30→19:50)
[2019-12-19] MEDS: HYDROCORTISONE SUC 100 MG INJ IV SCH ×2 (08:30→19:50)
--- NOTE | 2019-12-19 12:05 | PN ---
Date of Progress Note: 12/19/2019 Subjective: Patient was admitted with acute kidney injury on advanced chronic kidney disease secondary to Entresto/cardiorenal. Patient is required to be initiated on renal replacement therapy. Patient tolerated the dialysis. Patient has severe uremia upon presentation, currently more awake. Yesterday, we started him on TPN. Patient plan for PEG tube placement tomorrow. Physical Examination: Vital Signs: Blood pressure 141/77, pulse of 74. Chest: Clear to auscultation. Heart: S1 and S2. Regular. Abdomen: Soft, nontender. Extremities: No edema. Neurologic: Alert. Follow simple command. Laboratory Data: WBC 11.3, hemoglobin and hematocrit 8.5/27.3. Sodium 142, potassium 3.2, bicarb 26, BUN 33, creatinine 5.1. Calcium of 8. Current Medications: 1. Zosyn. 2. Vancomycin. 3. Epogen. 4. TPN. 5. Hydrocortisone 25 b.i.d. 6. PPN. Assessment And Plan: 1. End-stage renal disease. I am going to continue the patient on dialysis Friday, Friday, Friday. I am going to arrange for dialysis tomorrow and we will follow up the patient. 2. Failure to thrive. Plan for PEG tube. 3. Hypertension, controlled, optimal. Continue current medication. 4. Hypernatremia, resolved. 5. Acidosis secondary to renal failure, resolved. 6. Congestive heart failure. Normal volume currently. Continue to establish better volume control with the dialysis. 7. Hypothyroidism. Continue supplement. 8. Relative adrenal insufficiency. Continue current hydrocortisone supplement. 9. Coronavirus disease pneumonia with coronavirus disease nephropathy. Continue dialysis. Currently, patient on room air. We will follow up with Pulmonary. 10. Failure to thrive. Plan for PEG tube. Time spend for patient Care face to face , ordering and discussing the plan of care with staff 35 min KRISTAN Voice ID: [id number] Report ID: [id number] [facility] SYSTEMGordon
--- NOTE | 2019-12-19 15:18 | P.PN ---
Date of Service: 12/18/19 Subjective Patient oxygenating better. Nephrology okay with TPN for now. Plan for PEG tube Friday Review of Systems is unable to be obtained Physical Examination - Vital Signs reviewed - Physical Exam General: Other (Eyes open, looks around room, nonverbal); cachexia; dysphagia Respiratory: Clear bilaterally Cardiovascular: No edema, Normal S1 S2 Gastrointestinal: Hypoactive, Soft and benign Musculoskeletal: No erythema, No tenderness, No warmth Neurological: aphasic; does not follow commands; contractures Skin: Dry Assessment & Plan Assessment 1. ESRD 2. Hypernatremia 3. Adult failure to thrive with dysphagia and poor caloric intake 4. Chronic systolic congestive heart failure 5. History of CVA with complete debilitation 6. Hypertension 7. COVID-19 pneumonia Plan Continue with plan of care as mentioned below 1. Continue hemodialysis per electronic coils supervisor; TPN started; PEG tube on Friday 2. Sodium level is stable 3. Peg tube placement plan for Friday-if not done then transfer to LTAC once accepted. 4. Monitor volume status closely-also monitor electrolytes very closely since patient is on TPN 5. We will continue supportive care for stroke management 6. Strict blood pressure control 7. ST evaluation appreciated 8. Continue with anti-platelet therapy after PEG tube completed 9. Continue with O2 sats as tolerated 10. GI and DVT prophylax
--- NOTE | 2019-12-19 15:20 | P.PN ---
Date of Service: 12/19/19 Subjective Patient doing well. Stable with no new complaints. Review of Systems is unable to be obtained Physical Examination - Vital Signs reviewed - Physical Exam General: Other (Eyes open, looks around room, nonverbal); cachexia; dysphagia Respiratory: Clear bilaterally Cardiovascular: Normal S1 S2 Gastrointestinal: Hypoactive, Soft and benign Musculoskeletal: No erythema, No tenderness, No warmth Neurological: aphasic; does not follow commands; contractures Skin: Dry Assessment & Plan Assessment 1. ESRD 2. Hypernatremia 3. Adult failure to thrive with dysphagia and poor caloric intake 4. Chronic systolic congestive heart failure 5. History of CVA with complete debilitation 6. Hypertension 7. COVID-19 pneumonia Plan Continue with plan of care as mentioned below 1. Continue hemodialysis per process stripper; TPN continued-monitoring electrolytes; PEG tube on Friday 2. Sodium level stable 3. Peg tube placement plan for Friday-if not done then transfer to LTAC once accepted. 4. Monitor volume status closely-also monitor electrolytes very closely since patient is on TPN 5. We will continue supportive care for stroke management 6. Strict blood pressure control 7. ST evaluation appreciated 8. Continue with anti-platelet therapy after PEG tube completed 9. Continue with O2 sats as tolerated 10. GI and DVT prophylax
[2019-12-19] MEDS: AA 4.25%/D10W/ELECTROLYTES 2,000 ML, Lipids 20% 250 ML with MULTIVITAMINS INJ 10 ML IV SCH ×3 (16:57)
[2019-12-20] MEDS: PIPER/TAZO/NS 2.25gm 2.25 GM/50 ML BAG IVPB SCH ×4 (02:15→20:01)
[2019-12-20 05:26] LABS: Absolute Lymphocytes (CBC) 0.7 K/uL (0.7-4.9); Basophils % 0.2 % (0-1.3); Hematocrit 26.4 % (39.6-49.0); Lymphocytes % 9.6 % (15.3-44.8); MPV 11.5 fL (7.6-11.3); RBC Red Blood Cell Count 2.92 M/uL (4.33-5.43)
[2019-12-20 05:29] LABS: Protime INR 1.02
[2019-12-20 05:38] LABS: Magnesium 2.2 mg/dL (1.8-2.4); Phosphorus 6.3 mg/dL (2.5-4.9); Potassium 3.2 mmol/L (3.5-5.1)
[2019-12-20] MEDS: ENSURE PUDDING 4 OZ CUP PO SCH ×2 (08:02→13:51)
[2019-12-20] MEDS: PANTOPRAZOLE 40 MG INJ IVP SCH ×2 (08:03→20:01)
[2019-12-20] MEDS: HYDROCORTISONE SUC 100 MG INJ IV SCH ×2 (08:03→20:02)
--- NOTE | 2019-12-20 10:57 | P.PN ---
Subjective Date of Service: 12/20/19 Primary Care Provider: Dr. Lynch Chief Complaint: Acute renal failure Subjective: Other (No acute events) Review of Systems is unable to be obtained Physical Examination - Vital Signs Temperature: 96.6 F Blood Pressure: 155/81 Pulse: 71 Respirations: 19 Pulse Ox (%): 97 - Physical Exam General: In no apparent distress, Other (Drowsy but arousable) HEENT: Atraumatic, Normocephalic Neck: Supple Respiratory: Normal air movement, Crackles/rales Cardiovascular: Regular rate/rhythm, Normal S1 S2 Capillary refill: <2 Seconds Gastrointestinal: Soft and benign, W/out hepatosplenomegaly Musculoskeletal: No clubbing, Swelling Integumentary: No rashes Neurological: Other (Drowsy but arousable, confused) Lymphatics: No axilla or inguinal lymphadenopathy Assessment & Plan Physician Review Additional Text: Assessment 1. ESRD 2. Hypernatremia 3. Adult failure to thrive with dysphagia and poor caloric intake 4. Chronic systolic congestive heart failure 5. History of CVA with complete debilitation 6. Hypertension 7. COVID-19 pneumonia Plan 1. Continue hemodialysis per survey research professor; TPN continued-monitoring electrolytes 2. Sodium level stable 3. Peg tube placement plan as per GI 4. Monitor volume status closely-also monitor electrolytes very closely since patient is on TPN 5. We will continue supportive care for stroke management 6. Strict blood pressure control 7. ST evaluation appreciated 8. Continue with anti-platelet therapy after PEG tube completed 9. Continue with O2 sats as tolerated 10. GI and DVT prophylaxis Blood cultures positive for Staph coagulase negative possibly contaminant continue antibiotic Will get a repeat cultures Discussed with case management Awaiting transfer to [facility] tomorrow Time Spent Managing Pts Care (In Minutes): 42
[2019-12-20] MEDS: HYDRALAZINE HCL 25 MG TABLET PO SCH ×2 (14:56→21:00)
[2019-12-20] MEDS: AA 4.25%/D10W/ELECTROLYTES 2,000 ML, Lipids 20% 250 ML with MULTIVITAMINS INJ 10 ML IV SCH ×3 (17:13)
[2019-12-20] MEDS: NEPRO SHAKE 237 ML CAN PO SCH (20:02)
[2019-12-20] MEDS: NA CHLORIDE 0.9% 250 ML ONE (23:35)
[2019-12-20] MEDS: VANCOMYCIN 1 GM/VIAL ONE (23:35)
[2019-12-21] MEDS: PIPER/TAZO/NS 2.25gm 2.25 GM/50 ML BAG IVPB SCH ×4 (00:46→19:32)
--- NOTE | 2019-12-21 02:28 | PN ---
Date of Progress Note: 12/20/2019 Chief Complaint: Acute kidney injury on advanced chronic kidney disease due to cardiorenal syndrome and Entresto. The patient required initiation of renal replacement therapy. The patient tolerated d ialysis. The patient is currently on TPN. Review of Systems: Denies new complaints. Physical Examination: Lungs: Diminished breath sounds at bases. Heart: S1, S2. Abdomen: Soft, benign. Extremities: No edema. Impression And Plan: 1.End-stage renal disease. Continue dialysis 3 times per week. Monitor electrolytes. Creatinine i s up to 5.1 and BUN 33. 2.Metabolic acidosis, controlled. 3.Failure to thrive. Continue nutrition. The patient is awaiting PEG tube. 4.Hypertension, controlled. Continue current medication. 5.Acidosis secondary to renal failure, resolved and is compensated with dialysis. 6.Congestive heart failure with diastolic dysfunction. Continue ultrafiltration to control volemia. 7.Coronavirus pneumonia with coronavirus disease and nephropathy. Continue dialysis. SHOBHA/MALI Voice ID: [id number] Report ID: [id number]
[2019-12-21] MEDS: VANCOMYCIN 1 GM/VIAL ONE (03:48)
[2019-12-21] MEDS: NA CHLORIDE 0.9% 250 ML ONE (03:48)
[2019-12-21] MEDS: HYDRALAZINE HCL 25 MG TABLET PO SCH ×2 (08:13→19:31)
[2019-12-21] MEDS: NEPRO SHAKE 237 ML CAN PO SCH ×2 (08:13→19:32)
[2019-12-21] MEDS: HYDROCORTISONE SUC 100 MG INJ IV SCH ×2 (08:14→19:32)
[2019-12-21] MEDS: PANTOPRAZOLE 40 MG INJ IVP SCH ×2 (08:14→19:31)
--- NOTE | 2019-12-21 11:17 | P.PN ---
Subjective Date of Service: 12/21/19 Primary Care Provider: Dr. Lynch Chief Complaint: Acute renal failure Subjective: No new changes, Other (No acute events) Review of Systems is unable to be obtained Physical Examination - Vital Signs Temperature: 98.1 F Blood Pressure: 160/98 Pulse: 78 Respirations: 19 Pulse Ox (%): 97 - Physical Exam General: Alert, In no apparent distress HEENT: Atraumatic, Normocephalic Neck: Supple Respiratory: Clear to auscultation bilaterally Cardiovascular: Regular rate/rhythm, Normal S1 S2 Capillary refill: <2 Seconds Gastrointestinal: Soft and benign, W/out hepatosplenomegaly Musculoskeletal: No clubbing, No swelling Integumentary: No rashes Neurological: Other (Alert, Awake ) Lymphatics: No axilla or inguinal lymphadenopathy Assessment & Plan Physician Review Additional Text: Assessment 1. ESRD 2. Hypernatremia 3. Adult failure to thrive with dysphagia and poor caloric intake 4. Chronic systolic congestive heart failure 5. History of CVA with complete debilitation 6. Hypertension 7. COVID-19 pneumonia Plan Monitor under telemetry Continue hemodialysis per auto finance sales rep; TPN continued-monitoring electrolytes Monitor electrolytes and correct according Monitor volume status closely Continue supportive care for stroke management Strict blood pressure control ST evaluation appreciated : Started on pureed diet Continue with anti-platelet therapy GI and DVT prophylaxis Blood cultures positive for Staph coagulase negative possibly contaminant continue antibiotic Will get a repeat cultures Discussed with case management Awaiting transfer to [facility] Disposition : Awaiting transfer to LTAC Patient needs re-evaluation with speech therapy down the line Needs GI consult if the PEG Tube needed Time Spent Managing Pts Care (In Minutes): 42
[2019-12-21] MEDS: EPOETIN 4,000 UNIT/ML VIAL IV SCH (11:20)
--- NOTE | 2019-12-21 12:01 | P.PN ---
Subjective Date of Service: 12/21/19 Primary Care Provider: Dr. Lynch Chief Complaint: Acute renal failure Physical Examination - Vital Signs Temperature: 98.1 F Blood Pressure: 160/98 Pulse: 78 Respirations: 19 Pulse Ox (%): 97 Assessment And Plan - Plan Subjective pt with CKD, admitted with AMS , started on HD Pt found to have COVID 19 Today no change in clinical status poor oral intake pending LTAC acceptance HD tomorrow Physical exam general: Alert, not oriented Neck; Supple, No elevated JVD hear: RRR, normal S1,2 no murmur or rub Chest: CTAB, no rales or wheezes Abdomen: Soft , Nt Extremities No edema or ulcer Assessment And Plan: ESRD will cont HD MWF renal dose meds CVA cont supportive care encephalopathy now mentally stable likely COVID and metabolic cont supportive care HTN Bp controlled COVID 19 cont O2 with weaning failure to thrive will consider PEG placement if no improvement
[2019-12-21] MEDS: AA 4.25%/D10W/ELECTROLYTES 2,000 ML, Lipids 20% 250 ML with MULTIVITAMINS INJ 10 ML IV SCH ×3 (18:11)
[2019-12-22] MEDS: PIPER/TAZO/NS 2.25gm 2.25 GM/50 ML BAG IVPB SCH ×4 (01:06→21:40)
[2019-12-22] MEDS: NEPRO SHAKE 237 ML CAN PO SCH ×2 (08:30→21:43)
[2019-12-22] MEDS: PANTOPRAZOLE 40 MG INJ IVP SCH ×2 (08:30→21:42)
[2019-12-22] MEDS: HYDROCORTISONE SUC 100 MG INJ IV SCH ×2 (08:31→21:42)
[2019-12-22] MEDS: HYDRALAZINE HCL 25 MG TABLET PO SCH ×2 (08:44→21:41)
--- NOTE | 2019-12-22 11:55 | PN ---
Date of Progress Note: 12/22/2019 Subjective: The patient is doing well. The patient was admitted with acute kidney injury on advanced chronic kidney disease. The patient had severe uremic symptoms. The patient has improved. The patient had COVID-19 pneumonia, recovering. Objective: Vital Signs: When I saw the patient, blood pressure 140/84, pulse of 81, afebrile. Chest: Clear to auscultation. Heart: S1, S2 regular. Abdomen: Soft, nontender. Extremities: No edema. Neuro: Follows simple command. Still has weakness on the right side Laboratory Data: WBC 7.5, H and H 8.6/26.4, platelet 114. Sodium 142, potassium of 3.2, bicarb 24, BUN 49, creatinine 6.3, calcium 7.6, phosphorus 6.3, magnesium 2.2. Current Medications: The patient is on include Zosyn, vancomycin, Epogen, hydralazine 50 b.i.d., TPN. Assessment And Plan: 1. End-stage renal disease secondary to progression of the disease, dialysis dependent. We will continue the patient on dialysis Friday, Friday, Friday. Plan for dialysis today. 2. Secondary hyperparathyroidism. Continue current treatment. 3. Hypernatremia, recovered. 4. Failure to thrive. Continue PT and plan for PEG tube. 5. Encephalopathy, on recovery. 6. COVID-19, status post treatment. Time spend for patient Care face to face , ordering and discussing the plan of care with staff 35 min KRISTAN Voice ID: [id number] Report ID: [id number] MTDD
--- NOTE | 2019-12-22 12:03 | P.PN ---
Subjective Date of Service: 12/22/19 Primary Care Provider: Dr. Lynch Chief Complaint: Acute renal failure Subjective: No new changes (No acute events) Review of Systems is unable to be obtained Physical Examination - Vital Signs Temperature: 97.9 F Blood Pressure: 140/84 Pulse: 81 Respirations: 14 Pulse Ox (%): 99 - Physical Exam General: Alert, In no apparent distress HEENT: Atraumatic, Normocephalic Neck: Supple Respiratory: Clear to auscultation bilaterally, Normal air movement Cardiovascular: Regular rate/rhythm, Normal S1 S2 Capillary refill: <2 Seconds Gastrointestinal: Soft and benign, W/out hepatosplenomegaly Musculoskeletal: No clubbing, No swelling Integumentary: No rashes Neurological: Other (Alert, Awake ) Lymphatics: No axilla or inguinal lymphadenopathy Assessment & Plan Physician Review Additional Text: Assessment 1. ESRD 2. Hypernatremia 3. Adult failure to thrive with dysphagia and poor caloric intake 4. Chronic systolic congestive heart failure 5. History of CVA with debilitation 6. Hypertension 7. COVID-19 pneumonia Plan Monitor under telemetry Appreciate help from consultants Continue hemodialysis per panel raiser operator; TPN continued-monitoring electrolytes Monitor electrolytes and correct accordingly Monitor volume status closely Continue supportive care for stroke management Antihypertensives titrated ST evaluation appreciated : Started on pureed diet Continue with anti-platelet therapy GI and DVT prophylaxis Blood cultures positive for Staph coagulase negative possibly contaminant continue antibiotic Repeat cultures pending Discussed with case management Awaiting transfer to LTAC Disposition : Awaiting transfer to LTAC Patient needs re-evaluation with speech therapy down the line Needs GI consult if the PEG Tube needed Time Spent Managing Pts Care (In Minutes): 42
[2019-12-22] MEDS: AA 4.25%/D10W/ELECTROLYTES 2,000 ML, Lipids 20% 250 ML with MULTIVITAMINS INJ 10 ML IV SCH ×3 (16:56)
[2019-12-23] MEDS: PIPER/TAZO/NS 2.25gm 2.25 GM/50 ML BAG IVPB SCH ×4 (01:10→19:28)
[2019-12-23 05:51] LABS: Magnesium 2.2 mg/dL (1.8-2.4); Potassium 3.4 mmol/L (3.5-5.1)
[2019-12-23] MEDS: PANTOPRAZOLE 40 MG INJ IVP SCH ×2 (08:56→19:26)
[2019-12-23] MEDS: HYDROCORTISONE SUC 100 MG INJ IV SCH ×2 (08:57→19:26)
[2019-12-23] MEDS: HYDRALAZINE HCL 25 MG TABLET PO SCH ×2 (08:59→19:27)
[2019-12-23] MEDS: NEPRO SHAKE 237 ML CAN PO SCH ×2 (09:00→19:28)
[2019-12-23] MEDS: KCL 20 MEQ/100 mL IVPB 20 MEQ/100 ML BAG IV SCH ×2 (09:00→10:42)
--- NOTE | 2019-12-23 10:49 | P.PN ---
Subjective Date of Service: 12/23/19 Primary Care Provider: Dr. Lynch Chief Complaint: Acute renal failure Subjective: No new changes Review of Systems is unable to be obtained Physical Examination - Vital Signs Temperature: 97.8 F Blood Pressure: 162/86 Pulse: 70 Respirations: 18 Pulse Ox (%): 98 - Physical Exam General: Alert, In no apparent distress HEENT: Atraumatic, Normocephalic Neck: Supple Respiratory: Clear to auscultation bilaterally, Normal air movement Cardiovascular: Regular rate/rhythm, Normal S1 S2 Capillary refill: <2 Seconds Gastrointestinal: Soft and benign, W/out hepatosplenomegaly Musculoskeletal: No clubbing, No swelling Integumentary: No rashes Neurological: Other (Alert , non verbal , focal deficit +) Lymphatics: No axilla or inguinal lymphadenopathy Assessment & Plan Physician Review Additional Text: Assessment 1. ESRD 2. Hypernatremia 3. Adult failure to thrive with dysphagia and poor caloric intake 4. Chronic systolic congestive heart failure 5. History of CVA with debilitation 6. Hypertension 7. COVID-19 pneumonia Plan Monitor under telemetry Appreciate help from consultants Continue hemodialysis per rn integrated; Monitor electrolytes and correct accordingly Monitor volume status closely Continue supportive care for stroke management Antihypertensives titrated ST evaluation appreciated : Started on pureed diet Continue with anti-platelet therapy Blood cultures positive for Staph coagulase negative possibly contaminant continue antibiotic Repeat cultures pending Discussed with case management Awaiting transfer to LTAC GI and DVT prophylaxis Disposition : Awaiting transfer to LTAC Patient needs re-evaluation with speech therapy down the line Needs GI consult if the PEG Tube needed Discussed with GI : as the patient is tolerating p.o. ,will hold back the plan for PEG tube Time Spent Managing Pts Care (In Minutes): 42
--- NOTE | 2019-12-23 15:33 | PN ---
Date of Progress Note: 12/23/2019 Subjective: The patient was admitted with acute kidney injury secondary to COVID nephropathy on [facility] kidney disease. The patient required to initiate on renal replacement therapy. The patient was started on dialysis. The patient tolerated the dialysis very well. The patient is still nonverbal, confused. Physical Examination: Vital Signs: Blood pressure 162/86, pulse of 70, afebrile. Chest: Faint rales on the right base. Heart: S1, S2. Systolic murmur. Abdomen: Soft, nontender. Extremities: No edema. Neuro: The patient follows simple commands. Weakness on the right side. Laboratory Data: WBC 7.5, H and H 8.6/26.4, platelets of 114. Sodium 140, potassium 3.4, bicarb 30, BUN 25, creatinine 3.5, calcium 7.5, phosphorus 4, magnesium of 2.2. Current Medications: The patient on include; 1.Zosyn and vancomycin. 2.Epogen. 3.Hydralazine 50 b.i.d. 4.Nepro. 5.Pantoprazole. Assessment And Plan: 1.End-stage renal disease. Continue dialysis Friday, Friday, Friday. I am going to arrange for the patient to have dialysis tomorrow. 2.Hypokalemia. The patient is going to be dialyzed on high potassium bath. 3.Hypertension, controlled, optimal. We will follow up the patient. 4.Encephalopathy. Its look this is a new baseline for the patient. We will follow up with the prim diann. 5.Dysphagia. Continue TPN. Plan for PEG tube as by GI. 6.COVID pneumonia, status post treatment, stable. PONCHO/MODL Voice ID: [id number] Report ID: [id number]
[2019-12-23] MEDS: AA 4.25%/D10W/ELECTROLYTES 2,000 ML, Lipids 20% 250 ML with MULTIVITAMINS INJ 10 ML IV SCH ×3 (16:52)
[2019-12-23] MEDS ORDERED: KCL 20 MEQ/100 mL IVPB 20 MEQ/100 ML BAG IV SCH (22:00)
[2019-12-23] MEDS: HYDRALAZINE HCL 20 MG/ML VIAL IV PRN (23:34)
[2019-12-24] MEDS: PIPER/TAZO/NS 2.25gm 2.25 GM/50 ML BAG IVPB SCH ×4 (02:44→20:38)
[2019-12-24 04:25] LABS: Potassium 4.2 mmol/L (3.5-5.1)
[2019-12-24] MEDS ORDERED: WATER FOR INJ,STERILE 10 ML ONE (07:00)
[2019-12-24 07:28] VITALS: O2SAT 100
[2019-12-24] MEDS: HYDROCORTISONE SUC 100 MG INJ IV SCH ×2 (08:20→20:38)
[2019-12-24] MEDS: HYDRALAZINE HCL 25 MG TABLET PO SCH ×2 (08:20→20:37)
[2019-12-24] MEDS: PANTOPRAZOLE 40 MG INJ IVP SCH ×2 (08:20→20:38)
[2019-12-24] MEDS: NEPRO SHAKE 237 ML CAN PO SCH ×2 (08:21→20:38)
[2019-12-24] MEDS: HYDRALAZINE HCL 20 MG/ML VIAL IV PRN ×2 (08:21→23:43)
--- NOTE | 2019-12-24 12:27 | P.PN ---
Subjective Date of Service: 12/24/19 Primary Care Provider: Dr. Lynch Chief Complaint: Acute renal failure Physical Examination - Vital Signs Temperature: 96.8 F Blood Pressure: 169/87 Pulse: 102 Respirations: 16 Pulse Ox (%): 98 Assessment And Plan - Plan Subjective pt with CKD, admitted with AMS , started on HD Pt found to have COVID 19 Today no change in clinical status oral intake improving, PEG placement on hold for now will cont TPN for now pending LTAC acceptance HD today F/U repeated cultures Physical exam general: Alert, not oriented Neck; Supple, No elevated JVD hear: RRR, normal S1,2 no murmur or rub Chest: CTAB, no rales or wheezes Abdomen: Soft , Nt Extremities No edema or ulcer Assessment And Plan: ESRD will cont HD MWF renal dose meds CVA cont supportive care encephalopathy now mentally stable likely COVID 19 cont supportive care HTN Bp controlled COVID 19 cont O2 with weaning failure to thrive oral intake improving, PEG placement on hold for now will cont TPN for now staph coagulase negative bacteremia likely contamination f/u repeated cultures
--- NOTE | 2019-12-24 14:07 | P.PN ---
Subjective Date of Service: 12/24/19 Primary Care Provider: Dr. Lynch Chief Complaint: Acute renal failure Subjective: No new changes Review of Systems 10-point ROS is otherwise unremarkable Physical Examination - Vital Signs Temperature: 96.8 F Blood Pressure: 169/87 Pulse: 102 Respirations: 16 Pulse Ox (%): 98 - Physical Exam General: Alert, In no apparent distress HEENT: Atraumatic, Normocephalic Neck: Supple Respiratory: Clear to auscultation bilaterally, Normal air movement Cardiovascular: Regular rate/rhythm, Normal S1 S2 Capillary refill: <2 Seconds Gastrointestinal: Soft and benign, W/out hepatosplenomegaly Musculoskeletal: No clubbing, No swelling Integumentary: No significant lesion Neurological: Other (Alert, Awake ,Focal Neurological deficit ) Assessment & Plan Physician Review Additional Text: Assessment 1. ESRD 2. Hypernatremia 3. Adult failure to thrive with dysphagia and poor caloric intake 4. Chronic systolic congestive heart failure 5. History of CVA with debilitation 6. Hypertension 7. COVID-19 pneumonia Plan Monitor under telemetry Appreciate help from consultants Continue hemodialysis per animal physiology teacher; Monitor electrolytes and correct accordingly Monitor volume status closely Continue supportive care for stroke management Antihypertensives titrated ST evaluation appreciated : Started on pureed diet Continue with anti-platelet therapy Blood cultures positive for Staph coagulase negative possibly contaminant continue antibiotic Repeat cultures pending Discussed with case management Awaiting transfer to LTAC GI and DVT prophylaxis Disposition : Awaiting transfer to LTAC Patient needs re-evaluation with speech therapy down the line Needs GI consult if the PEG Tube needed Discussed with GI : as the patient is tolerating p.o. ,will hold back the plan for PEG tube Awaiting Placement to LTAC Time Spent Managing Pts Care (In Minutes): 43
[2019-12-24] MEDS: AA 4.25%/D10W/ELECTROLYTES 2,000 ML, Lipids 20% 250 ML with MULTIVITAMINS INJ 10 ML IV SCH ×3 (17:17)
[2019-12-24] MEDS: JUVEN PACKET PO SCH (20:38)
[2019-12-25] MEDS: PIPER/TAZO/NS 2.25gm 2.25 GM/50 ML BAG IVPB SCH ×3 (02:00→13:51)
[2019-12-25 07:01] LABS: Potassium 4.1 mmol/L (3.5-5.1)
[2019-12-25] MEDS: PANTOPRAZOLE 40 MG INJ IVP SCH (09:25)
[2019-12-25] MEDS: NEPRO SHAKE 237 ML CAN PO SCH (10:18)
[2019-12-25] MEDS: JUVEN PACKET PO SCH (10:18)
[2019-12-25] MEDS: HYDRALAZINE HCL 25 MG TABLET PO SCH (10:44)
--- NOTE | 2019-12-25 11:40 | P.PN ---
Subjective Date of Service: 12/25/19 Primary Care Provider: Dr. Lynch Chief Complaint: Acute renal failure Subjective: No new changes, Other (No acute events) Review of Systems is unable to be obtained Physical Examination - Vital Signs Temperature: 97.8 F Blood Pressure: 148/83 Pulse: 68 Respirations: 13 Pulse Ox (%): 100 - Physical Exam General: Alert, In no apparent distress HEENT: Atraumatic, Normocephalic Neck: Supple Respiratory: Clear to auscultation bilaterally Cardiovascular: Regular rate/rhythm, Normal S1 S2 Capillary refill: <2 Seconds Gastrointestinal: Soft and benign, W/out hepatosplenomegaly Musculoskeletal: No clubbing, No swelling Integumentary: No rashes Neurological: Other (Alert, Awake , Focal deficit +) Lymphatics: No axilla or inguinal lymphadenopathy Assessment & Plan Physician Review Additional Text: Assessment 1. ESRD 2. Hypernatremia 3. Adult failure to thrive with dysphagia and poor caloric intake 4. Chronic systolic congestive heart failure 5. History of CVA with debilitation 6. Hypertension 7. COVID-19 pneumonia Plan No Acute events Monitor under telemetry Appreciate help from consultants Continue hemodialysis per study specialist; Monitor electrolytes and correct accordingly Monitor volume status closely Continue supportive care for stroke management Antihypertensives titrated ST evaluation appreciated : Started on pureed diet Continue with anti-platelet therapy Blood cultures positive for Staph coagulase negative possibly contaminant continue antibiotic Repeat cultures negative Discussed with case management Awaiting transfer to LTAC GI and DVT prophylaxis Disposition : Awaiting transfer to LTAC Patient needs re-evaluation with speech therapy down the line Needs GI consult if the PEG Tube needed Discussed with GI : as the patient is tolerating p.o. ,will hold back the plan for PEG tube Awaiting Placement to LTAC Time Spent Managing Pts Care (In Minutes): 45
--- NOTE | 2019-12-25 15:11 | P.PN ---
Subjective Date of Service: 12/25/19 Primary Care Provider: Dr. Lynch Chief Complaint: Acute renal failure Physical Examination - Vital Signs Temperature: 97.8 F Blood Pressure: 148/83 Pulse: 68 Respirations: 13 Pulse Ox (%): 100 Assessment And Plan - Plan Subjective pt with CKD, admitted with AMS , started on HD Pt found to have COVID 19 Today no change in clinical status will cont TPN for now pending transfer to LTAC Physical exam general: Alert, not oriented Neck; Supple, No elevated JVD hear: RRR, normal S1,2 no murmur or rub Chest: CTAB, no rales or wheezes Abdomen: Soft , Nt Extremities No edema or ulcer Assessment And Plan: ESRD on HD MWF will cont HD MWF renal dose meds CVA cont supportive care encephalopathy now mentally stable likely COVID 19 cont supportive care HTN Bp controlled COVID 19 cont O2 with weaning failure to thrive oral intake improving, PEG placement on hold for now will cont TPN for now staph coagulase negative bacteremia likely contamination f/u repeated cultures
[2019-12-25] MEDS ORDERED: LABETALOL 20 MG/4ML SYRINGE IV PRN (15:58)
--- NOTE | 2019-12-25 16:10 | P.DS ---
Admission Date: 12/11/19 Discharge Date: 12/25/19 Primary Care Provider: Dr. Lynch Disposition[facility] Discharge Condition: GOOD Reason for Admission: Acute renal failure Brief History of Present Illness: 59-year-old male with history of CVA, CHF, hypertension who presented emergency department for altered mental status a failure to thrive. Daughter who is power of lead painter reports that patient's in the recent past and since then he has been refusing to eat or take any medications. Patient is at baseline mental status, he looks around the room and does follow some simple commands but does not speak. Initially patient's rectal temperature was 91 F, blood pressure very low in the 60s to 70 systolic initially. Patient with some history of chronic kidney disease. During his evaluation in the emergency department patient was found to be in acute renal failure with a creatinine of 16, BUN 234, GFR 4, sodium 160. Patient was given aggressive fluid resuscitation, right femoral central line was placed in the emergency department, patient was started on vasopressors (Levophed) discussed circumstances with daughter and other family members who believe that is appropriate at this time to make him a DNR/DNI. These papers were signed in the emergency department with [id number], physician, myself, witness. Will continue with noninvasive treatments including vasopressor support, antibiotics for likely aspiration pneumonia, consult with nephrology for acute renal failure. Will discuss plan of care further with family as his response to treatment progresses. Nephrology was consulted while the patient was in the emergency department. Hospital Course: 1. ESRD 2. Hypernatremia 3. Adult failure to thrive with dysphagia and poor caloric intake 4. Chronic systolic congestive heart failure 5. History of CVA with debilitation 6. Hypertension 7. COVID-19 pneumonia Plan No Acute events Monitor under telemetry Appreciate help from consultants Continue hemodialysis per felt finishing supervisor; Monitor electrolytes and correct accordingly Monitor volume status closely Continue supportive care for stroke management Antihypertensives titrated ST evaluation appreciated : Started on pureed diet Continue with anti-platelet therapy Blood cultures positive for Staph coagulase negative possibly contaminant continue antibiotic Repeat cultures negative Discussed with case management Awaiting transfer to LTAC GI and DVT prophylaxis Disposition : Awaiting transfer to LTAC Patient needs re-evaluation with speech therapy down the line Needs GI consult if the PEG Tube needed Discussed with GI : as the patient is tolerating p.o. ,will hold back the plan for PEG tube Awaiting Placement to LTAC Vital Signs/Physical Exam: Temp Pulse Resp BP Pulse Ox 97.8 F 68 13 148/83 H 100 12/25/19 15:11 12/25/19 15:11 12/25/19 15:11 12/25/19 15:11 12/25/19 15:11 General: Alert, In no apparent distress HEENT: Atraumatic, Normocephalic Neck: Supple Respiratory: Normal air movement Cardiovascular: Irregular heart rate/rhythm Capillary refill: <2 Seconds Gastrointestinal: Soft and benign Musculoskeletal: No clubbing Integumentary: No rashes Neurological: Other (Alert, Awake ) Lymphatics: No axilla or inguinal lymphadenopathy Laboratory Data at Discharge: WBC 7.5 K/uL (4.3-10.9) D 12/20/19 04:30 Hgb 8.6 g/dL (13.6-17.9) L 12/20/19 04:30 Hct 26.4 % (39.6-49.0) L 12/20/19 04:30 Plt Count 114 K/uL (152-406) L 12/20/19 04:30 PT 12.0 SECONDS (9.5-12.5) 12/20/19 04:30 INR 1.02 12/20/19 04:30 APTT 25.8 SECONDS (24.3-36.9) 12/20/19 04:30 Sodium 141 mmol/L (136-145) 12/25/19 05:35 Potassium 4.1 mmol/L (3.5-5.1) 12/25/19 05:35 BUN 50 mg/dL (7-18) H 12/25/19 05:35 Creatinine 5.05 mg/dL (0.55-1.3) H* 12/25/19 05:35 Glucose 108 mg/dL (74-106) H 12/25/19 05:35 Uric Acid 13.3 mg/dL (3.5-7.2) H 12/11/19 17:00 Phosphorus 4.0 mg/dL (2.5-4.9) 12/23/19 05:00 Magnesium 2.2 mg/dL (1.8-2.4) 12/23/19 05:00 Total Bilirubin 0.5 mg/dL (0.2-1.0) 12/11/19 12:55 AST 32 U/L (15-37) 12/11/19 12:55 ALT 27 U/L (12-78) 12/11/19 12:55 Alkaline Phosphatase 112 U/L (45-117) 12/11/19 12:55 Troponin I 0.83 ng/mL (0.0-0.045) H* 12/12/19 14:50 Triglycerides 133 mg/dL (<150) 12/18/19 17:45 Amylase 242 U/L (25-115) H* 12/11/19 12:55 Lipase 632 U/L (73-393) H 12/11/19 12:55 Home Medications: Hydralazine HCl 1 tab PO TID 05/24/16 Isosorbide Mononitrate [Isosorbide Mononitrate ER] 20 mg PO BID 05/24/16 Sacubitril/Valsartan [Entresto 49 mg-51 mg Tablet] 1 tab PO BID 05/24/16 carvediloL [Coreg*] 6.25 tab PO TID 05/24/16 Atorvastatin Calcium [Lipitor*] 1 tab PO BEDTIME 12/16/19 hydroCHLOROthiazide [Hydrochlorothiazide*] 25 mg PO DAILY 12/16/19 Hydrocortisone Na Suc [Solu-Cortef*] 25 mg IV Q12H #1 vial 12/18/19 Ezzpbbmjxrmd-Rcsz-Tvcqnxfq,Iso [Zosyn 2.25 gm/50 ml Galaxy Bag] 2.25 gm IV Q8HR #1 [email or web address] 12/18/19 Vancomycin/0.9 % Sod Chloride [Vanco 500 mg/100 ml-0.9% NaCl] 500 mg IV AFTER EACH DIALYSIS #1 [email or web address] 12/18/19 New Medications: Hydrocortisone Na Suc [Solu-Cortef*] 25 mg IV Q12H #1 vial Vancomycin/0.9 % Sod Chloride [Vanco 500 mg/100 ml-0.9% NaCl] 500 mg IV AFTER EACH DIALYSIS #1 froz.piggy Eurtkzdztdmj-Vxkb-Veqmzgeg,Iso [Zosyn 2.25 gm/50 ml Galaxy Bag] 2.25 gm IV Q8HR #1 [email or web address] Patient Discharge Instructions: [facility]. CALL or TEXT DR. BEY AT [phone] IF ANY QUESTIONS REGARDING HOSPITAL STAY. Diet: npo Followup: Anuj Fine MD [ACTIVE - CAN ADMIT] - (Will continue to follow at [facility]) Time spent managing pt's care (in minutes): 42
[2019-12-25 16:40] VITALS: BP 155/82
[2019-12-25] MEDS ORDERED: LABETALOL 20 MG/4ML SYRINGE IV ONE (16:47)
[2019-12-25 17:14] VITALS: TEMP 98.2
== END 2019-12-25 16:10 | DRG 871 ==
LOC: ER 12:04 → ERHOLD 15:40 → 2ND 12-13 22:47 → 3RD-ICU 12-15 00:39 → 4TH 12-17 18:00 → 3RD-ICU 12-24 18:48 → ERHOLD 12-25 08:38
PROVIDERS: ADMIT Internal Medicine; ATTEND Family Medicine
PROC: 02HV33Z Insertion of Infusion Device into Superior Vena Cava, Percutaneous Approach (ICD-10-PCS; 2019-12-12)
PROC: 0JH60XZ Insertion of Tunneled Vascular Access Device into Chest Subcutaneous Tissue and Fascia, Open Approach (ICD-10-PCS; principal; 2019-12-12 12:45)
PROC: 5A1D70Z Performance of Urinary Filtration, Intermittent, Less than 6 Hours Per Day (ICD-10-PCS; 2019-12-14)
PROC: 3E0336Z Introduction of Nutritional Substance into Peripheral Vein, Percutaneous Approach (ICD-10-PCS; 2019-12-14)
DX: A41.89 Other specified sepsis (principal); N17.0 Acute kidney failure with tubular necrosis; L89.154 Pressure ulcer of sacral region, stage 4; R65.21 Severe sepsis with septic shock; U07.1 COVID-19; J12.89 Other viral pneumonia; N18.6 End stage renal disease; I50.22 Chronic systolic (congestive) heart failure; E87.2 Acidosis; E87.0 Hyperosmolality and hypernatremia; G93.49 Other encephalopathy; R47.01 Aphasia; N25.81 Secondary hyperparathyroidism of renal origin; R64 Cachexia; G93.40 Encephalopathy, unspecified; I13.2 Hypertensive heart and chronic kidney disease with heart failure and with stage 5 chronic kidney disease, or end stage renal disease; R62.7 Adult failure to thrive; E86.0 Dehydration; E87.6 Hypokalemia; D63.8 Anemia in other chronic diseases classified elsewhere; D69.6 Thrombocytopenia, unspecified; Z66 Do not resuscitate; Z86.73 Personal history of transient ischemic attack (TIA), and cerebral infarction without residual deficits; Z93.1 Gastrostomy status; Z79.899 Other long term (current) drug therapy; Z68.23 Body mass index [BMI] 23.0-23.9, adult; Z95.810 Presence of automatic (implantable) cardiac defibrillator
CPT/HCPCS: 36415; 71045; 71250; 74176; 76000; 76770; 80048; 80069; 80076; 80202; 82040; 82150; 82533; 82550; 82553; 82607; 82652; 82728; 82746; 82805; 82947; 83520; 83540; 83605; 83690; 83735; 83970; 84100; 84132; 84145; 84165; 84439; 84443; 84466; 84478; 84484; 84550; 85025; 85044; 85610; 85730; 86021; 86038; 86160; 86225; 86317; 86430; 86704; 86706; 86803; 86850; 86900; 86901; 87040; 87205; 87340; 87389; 87522; 90935; 92610; 93005; 99291; C1752; C9113; J0360; J0692; J1644; J1720; J2405; J2704; J3370; J3480; J7030; J7040; J7050; J7060; J7799; P9047; Q5105; U0002; U0003